=== PATIENT | female | born 1985 | race Caucasian/White ===

== ENCOUNTER 2016-08-06 18:56 | Emergency (ER) | payer BC, OTHER ==
[~2016-08-06] VITALS: Ht 160 cm; Wt 97.1 kg
[~2016-08-06 18:56] MED LIST: AC500T PO; ALPR.5T PO; ALPR1T PO; ALPR1TAB7; AMT10T PO; BUTA1CAP39 PO; CLIN-62 PO; CLN150C1RX PO; CLON1TAB PO; CYCL10TA9 PO; DCS100C PO; DICL50TA3 PO; DOXY100T2 PO; EST.1TD TOP; ESTR0.5T PO; ESTR1PAT92 TD; FLUO10CA29 PO; FLUO20CA25 PO; FLUO40CA PO; FLUT9.9S NS; GABA-488 PO; HYDR-2889 PO; HYDR-3714 PO; HYDR-3816 PO; HYDR-757 PO; HYDR1TAB PO; HYDR1TAB8 PO; IBP600T1 PO; IBUP-792 PO; INDO50CA PO; MAGN-47 PO; MDR10T PO; MGX400T PO; NAPR-243 PO; NITR-65 PO; ORPH100T PO; OXYC-12 PO; PHEN200T27 PO; PRD20T PO; PRED10TA PO; SULF1TAB38 PO; TOPROL
--- OUTSIDE RECORDS SUMMARY | 2016-08-06 19:01 | XMS REPORT | Continuity of Care Document ---
Author Author [facility] Organization [facility] Address Unknown Phone Unavailable Care Team Providers Care [facility] [employer] Attendant Name Role Phone PCP Unavailable Source Comments Some departments are not documenting in the electronic medical record. If you do not see the information that you expected, contact Release of Information in the Health Information Management department at [phone] for further assistance in locating additional records.[facility] Active Allergies and Adverse Reactions Allergen Noted Date Severity Reactions Comments Amoxicillin 11/02/2014 Low UNKNOWN Other 11/02/2014 Low UNKNOWN Chloreseptic spray Reglan 11/02/2014 Low UNKNOWN Ultram 11/02/2014 Low UNKNOWN Current Medications Prescription Sig. Disp. Refills Start End Date Status Date indomethacin (INDOCIN) 25 Take 25 mg by mouth three Active mg capsule times daily. estradiol (ESTRACE) 1 mg Take 1.5 mg by mouth Active tablet daily. FLUOXETINE HCL (PROZAC Take 40 mg by mouth. Active PO) ALPRAZolam (XANAX) 1 mg Take 1 mg by mouth three Active tablet times daily as needed. Active Problems Not on file Social History Tobacco Use Types Packs/Day Years Used Date Never Assessed Plan of Care Health Maintenance Due Date Last Done Comments Physical (Comprehensive) 1992 Exam Pertussis Vaccine 1996 Tetanus Vaccine 2002 Cervical Cancer Screening 2006 Influenza Vaccine 03/19/2016 Results from Last 3 Months Not on file
[2016-08-06] MEDS ORDERED: KETOROLAC 30 MG/ML VIAL IVP STA (19:37)
--- NOTE | 2016-08-06 19:42 | ED Abdominal Pain ---
General Chief Complaint: Abdominal/GI Problems Stated Complaint: ABD PAIN Nursing Triage Note: PT TO ED 7 W/ S.O. FOR C/O RUQ PAIN. REPORTS WAS SEEN AT [place] ET TOLD SHE WAS CONSTIPATED. Sepsis Screen: No Definite Risk History of Present Illness Time Seen By Provider: 19:30 Initial Comments Evaluation for right upper quadrant pain. Symptoms started approximately 3 weeks ago with constipation. Been evaluated in [place] by her primary care provider and emergency department. Timing/Duration: Other (3 weeks) Location: RUQ Radiation: No Radiation Modifying Factors: Improves With Defecating, Improves With Other (laxatives) Allergies and Home Medications Allergies Coded Allergies: amoxicillin (Unverified Allergy, Mild, RASH, 10/16/10) metoclopramide (Unverified Adverse Reaction, Intermediate, SHAKES, 10/16/10 ) benzocaine (Unverified Adverse Reaction, Mild, 10/16/10) menthol (Unverified Adverse Reaction, Mild, 10/16/10) tramadol (Verified Adverse Reaction, Mild, RASH, 08/02/11) Home Medications Alprazolam 1 Mg Tablet #30 (Reported) Butalb/Acetaminophen/Caffeine 1 Each Capsule #14 1 EACH PO Q4H PRN PRN HEADACHE Prescribed by: MONTRELL REGALADO on 06/25/15818 Ciprofloxacin HCl 500 Mg Tablet #6 500 MG PO Q12H Prescribed by: ANDRES RODRIGUEZ on 08/06/162127 Estradiol 1 Each Patch.tdsw 1 EACH TD Twice weekly (Reported) Fluoxetine HCl 10 Mg Capsule 10 MG PO (Reported) Hydrocodone/Acetaminophen 1 Each Tablet #10 1 EACH PO Q6H Prescribed by: MONTRELL REGALADO on 03/22/161938 Hydrocodone/Acetaminophen 1 Each Tablet #12 1 EACH PO Q6H PRN PRN PAIN Prescribed by: ANDRES RODRIGUEZ on 08/06/162133 Hyoscyamine Sulfate 0.125 Mg Tab.subl #12 0.125 MG SL Q4H Prescribed by: ANDRES RODRIGUEZ on 08/06/162133 Prednisone 20 Mg Tab #10 40 MG PO DAILY Prescribed by: MONTRELL REGALADO on 03/22/161938 Review of Systems Constitutional: no symptoms reported see HPI EENTM: No Symptoms Reported See HPI Respiratory: No Symptoms Reported See HPI Cardiovascular: No Symptoms Reported See HPI Gastrointestinal: See HPI Abdomen Distended Abdominal Pain (right upper quadrant) ConstipatedDenies Diarrhea, Denies Difficulty Swallowing, Nausea Poor AppetiteDenies Vomiting, Other (denies changes in color of stool.) Genitourinary: No Symptoms Reported See HPIDenies Flank Pain Musculoskeletal: no symptoms reported see HPI Skin: no symptoms reported see HPI Psychiatric/Neurological: No Symptoms Reported See HPI Endocrine: No Symptoms Reported See HPI Hematologic/Lymphatic: No Symptoms Reported See HPI All Other Systems Reviewed Negative Unless Noted: Yes Past Gkzetme-Kqbopn-Etljxy Hx Patient Social History Alcohol Use: Denies Use Recreational Drug Use: No Smoking Status: Current Everyday Smoker Type Used: Cigarettes Recent Foreign Travel: No Contact w/Someone Who Travel: No Recent Infectious Disease Expo: No Recent Hopitalizations: No Physical Abuse Screen: No Sexual Abuse: No Immunizations Up To Date Tetanus Booster (TDap): Unknown Seasonal Allergies Seasonal Allergies: No Surgeries HX Surgeries: Yes (HERNIA) Surgeries: Adenoidectomy, Section, Hysterectomy, Oophorectomy, Tonsillectomy Respiratory Hx Respiratory Disorders: No Cardiovascular Hx Cardiac Disorders: Yes (EPISODE OF BRADYCARDIA AFTER OF A CHILD) Cardiac Disorders: Hypertension Neurological Hx Neurological Disorders: Yes Neurological Disorders: Headaches /Migraines Reproductive System Hx Reproductive Disorders: No 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 Genitourinary Hx Genitourinary Disorders: No Gastrointestinal Hx Gastrointestinal Disorders: Yes Gastrointestinal Disorders: Gastroesophageal Reflux Musculoskeletal Hx Musculoskeletal Disorders: Yes Musculoskeletal Disorders: Fibromyalgia, Chronic Back Pain Endocrine Hx Endocrine Disorders: No HEENT HX ENT Disorders: No Cancer Hx Cancer: No Psychosocial Hx Psychiatric Problems: Yes Behavioral Health Disorders: Anxiety Integumentary HX Skin/Integumentary Disorder: No Blood Transfusions Hx Blood Disorders: No Reviewed Nursing Assessment Reviewed/Agree w Nursing PMH: Yes Family Medical History Significant Family History: No Pertinent Family Hx, Cancer Physical Exam Vital Signs VS - Last 72 Hours, by Label 08/06/16 08/06/16 19:08 22:35 Temp 99.7 Pulse 102 70 Resp 20 20 B/P 140/92 Pulse Ox 99 99 O2 Delivery Room Air Room Air Capillary Refill : Less Than 3 Seconds General Appearance: WD/WN no apparent distress HEENT: PERRL/EOMI normal ENT inspection TMs normal pharynx normal Neck: non-tender full range of motion supple normal inspection Respiratory: chest non-tender lungs clear no respiratory distress Cardiovascular: normal peripheral pulses regular rate, rhythm Gastrointestinal: normal bowel sounds soft no organomegalyNo rebound, tenderness (RUQ) other (+ Nur) Extremities: normal range of motion non-tender normal inspection no calf tenderness normal capillary refill Back: normal inspection no CVA tenderness no vertebral tenderness Neurologic/Psychiatric: alert normal mood/affect oriented x 3 Skin: normal color warm/dry Lymphatic: no adenopathy Progress/Results/Core Measures Results/Orders Lab Results Laboratory Tests Test 08/06/16 19:40 08/06/16 20:10 Range/Units Alanine Aminotransferase (ALT/SGPT) 48 0-55 U/L Albumin 4.3 3.2-4.5 G/DL Alkaline Phosphatase 93 40-136 U/L Amylase Level 42 25-125 U/L Anion Gap 12 5-14 MMOL/L Aspartate Amino Transf (AST/SGOT) 61 H 5-34 U/L BUN/Creatinine Ratio 15 Basophils # (Auto) 0.0 0.0-0.1 10^3/uL Basophils (%) (Auto) 1 0-10 % Blood Urea Nitrogen 12 7-18 MG/DL Calcium Level 9.3 8.5-10.1 MG/DL Carbon Dioxide Level 19 L 21-32 MMOL/L Chloride Level 107 98-107 MMOL/L Creatinine 0.78 0.60-1.30 MG/DL Eosinophils # (Auto) 0.2 0.0-0.3 10^3/uL Eosinophils (%) (Auto) 3 0-10 % Estimat Glomerular Filtration Rate > 60 Glucose Level 89 70-105 MG/DL Hematocrit 41 35-52 % Hemoglobin 14.0 11.5-16.0 G/DL Lipase 18 8-78 U/L Lymphocytes # (Auto) 2.2 1.0-4.0 X 10^3 Lymphocytes (%) (Auto) 28 12-44 % Mean Corpuscular Hemoglobin 30 25-34 PG Mean Corpuscular Hemoglobin Concent 34 32-36 G/DL Mean Corpuscular Volume 86 80-99 FL Mean Platelet Volume 10.6 H 7.4-10.4 FL Monocytes # (Auto) 0.4 0.0-1.0 X 10^3 Monocytes (%) (Auto) 5 0-12 % Neutrophils # (Auto) 5.1 1.8-7.8 X 10^3 Neutrophils (%) (Auto) 64 42-75 % Platelet Count 231 130-400 10^3/uL Potassium Level 3.8 3.6-5.0 MMOL/L Red Blood Count 4.74 4.35-5.85 10^6/uL Red Cell Distribution Width 12.6 10.0-14.5 % Sodium Level 138 135-145 MMOL/L Total Bilirubin 0.5 0.1-1.0 MG/DL Total Protein 7.5 6.4-8.2 G/DL White Blood Count 7.9 4.3-11.0 10^3/uL Urine Bacteria FEW H /HPF Urine Bilirubin NEGATIVE NEGATIVE Urine Casts NONE /LPF Urine Clarity CLEAR Urine Color YELLOW Urine Crystals NONE /LPF Urine Culture Indicated YES Urine Glucose (UA) NEGATIVE NEGATIVE Urine Ketones NEGATIVE NEGATIVE Urine Leukocyte Esterase 3+ H NEGATIVE Urine Mucus NEGATIVE /LPF Urine Nitrite NEGATIVE NEGATIVE Urine Protein NEGATIVE NEGATIVE Urine RBC 2-5 H /HPF Urine RBC (Auto) 3+ H NEGATIVE Urine Specific [place] 1.030 H 1.016-1.022 Urine Squamous Epithelial Cells 5-10 /HPF Urine Urobilinogen 4 H NORMAL MG/DL Urine WBC 10-25 H /HPF Urine pH 8 5-9 My Orders Orders-ANDRES RODRIGUEZ Amylase (08/06/16 19:37) Cbc With Automated Diff (08/06/16 19:37) Comprehensive Metabolic Panel (08/06/16 19:37) Lipase (08/06/16 19:37) Ketorolac Injection (Toradol Injection) (08/06/16 19:37) Saline Lock/Iv-Start (08/06/16 19:37) Us Gallbladder 729[address] (08/06/16 19:37) Hydrocodone/Apap 7.5/325 Tab (Lortab 7. (08/06/16 21:25) Ceftriaxone Injection (Rocephin Injectio (08/06/16 21:30) Hyoscyamine Sl Tablet (Levsin Sl Tablet) (08/06/16 21:45) Medications Given in ED Current Medications Medications Dose Ordered Sig/Delmis Route Start Time Stop Time Status Last Admin Dose Admin Ceftriaxone Sodium/Sodium Chloride 50 ml @ 100 mls/hr ONCE ONCE IV 08/06/16 21:30 08/06/16 21:59 DC 08/06/16 21:32 100 MLS/HR Hyoscyamine Sulfate 0.125 mg ONCE ONCE PO 08/06/16 21:45 08/06/16 21:46 DC 08/06/16 21:44 0.125 MG Vital Signs/I&O Vital Sign - Last 12Hours 08/06/16 08/06/16 19:08 22:35 Temp 99.7 Pulse 102 70 Resp 20 20 B/P 140/92 Pulse Ox 99 99 O2 Delivery Room Air Room Air Blood Pressure Mean: 108 Progress Note : Time: 19:30 Progress Note Initial evaluation completed, we'll obtain ultrasound of the gallbladder. Toradol 30 mg IV for pain. Patient denies needs for medication for nausea nausea. 2124 patient reports continued pain 7 out of 10 right upper quadrant, ultrasound essentially normal. Hydrocodone/APAP 7.5/325 mg. by mouth. UA shows UTI, culture ordered. Discussed patient findings with Dr. Reed, considering UA, concerns over pyelonephritis. No CVAT. Continues to have + Nur sign. 2129 Rocephin 1 gram IV. 2144 Levsin 0.125 mg SL 2199 patient reports slight improvement in symptoms, is comfortable to return home. Will follow-up with family doctor tomorrow. Understands importance to follow up for UTI, if pain in back presents or fever, she will seek care immediately. Diagnostic Imaging Diagonstic Imaging: Ultrasound Plain Films/CT/US/NM/MRI: other Comments US Gallbladder shows some wall thickening with sludge, no stones, CBD patent. Reviewed: Reviewed/Discussed Departure Impression Impression: Primary Impression: Urinary tract infection Qualified Code: N39.0 - Urinary tract infection, site not specified Additional Impression: Cholecystitis Disposition: 01 HOME, SELF-CARE Condition: Stable Departure-Patient Inst. Decision time for Depature: 22:15 Referrals: NO,LOCAL PHYSICIAN (PCP/Family) Primary Care Physician Patient Instructions: Constipation, Adult (DC), Gallstones (DC), Urinary Tract Infection, Adult (DC) Add. Discharge Instructions: All discharge instructions reviewed with patient and/or family. Voiced understanding. Follow up with family doctor early next week. Increase fluid intake. Drink Cranberry juice, one glass daily. See Dr. Genao ([phone]) or Dr. Brandt ([phone]) for gallbladder. Start Probiotic, over the counter. Return to Emergency Department for fevers, increased or change in symptoms. Scripts Hydrocodone/Acetaminophen (Hydrocodon -Acetaminophen 5-325)1 Each Tablet1 Each PO Q6H PRN PAIN #12 TAB Ref 0 Prov:ANDRES RODRIGUEZ 08/06/16 Hyoscyamine Sulfate (Levsin-Sl)0.125 Mg Tab.subl0.125 Mg SL Q4H Spasms #12 TAB Ref 0 Prov:ANDRES RODRIGUEZ 08/06/16 Ciprofloxacin HCl (Cipro)500 Mg [id number] Mg PO Q12H #6 TAB Prov:ANDRES RODRIGUEZ 08/06/16 ANDRES RODRIGUEZ Aug 06, 2016 19:42
[2016-08-06 19:53] LABS: BASOPHILS % (AUTO) 1 % (0-10); EOSINOPHILS # (AUTO) 0.2 10^3/uL (0.0-0.3); EOSINOPHILS % (AUTO) 3 % (0-10); LYMPHOCYTES # (AUTO) 2.2 X 10^3 (1.0-4.0); LYMPHOCYTES % (AUTO) 28 % (12-44); MEAN CORPUSCULAR HEMOGLOBIN 30 PG (25-34); MEAN CORPUSCULAR HGB CONC 34 G/DL (32-36); MEAN CORPUSCULAR VOLUME 86 FL (80-99); MEAN PLATELET VOLUME 10.6 FL (7.4-10.4); MONOCYTES # (AUTO) 0.4 X 10^3 (0.0-1.0); MONOCYTES % (AUTO) 5 % (0-12); NEUTROPHILS # (AUTO) 5.1 X 10^3 (1.8-7.8); NEUTROPHILS % (AUTO) 64 % (42-75); PLATELET COUNT 231 10^3/uL (130-400); RED BLOOD COUNT 4.74 10^6/uL (4.35-5.85); RED CELL DISTRIBUTION WIDTH 12.6 % (10.0-14.5); WHITE BLOOD COUNT 7.9 10^3/uL (4.3-11.0)
[2016-08-06 20:11] LABS: ALANINE AMINOTRANSFERASE 48 U/L (0-55); ALBUMIN 4.3 G/DL (3.2-4.5); AMYLASE 42 U/L (25-125); ANION GAP 12 MMOL/L (5-14); ASPARTATE AMINO TRANSFERASE 61 U/L (5-34); BILIRUBIN,TOTAL 0.5 MG/DL (0.1-1.0); BLOOD UREA NITROGEN 12 MG/DL (7-18); BUN/CREATININE RATIO 15; CALCIUM 9.3 MG/DL (8.5-10.1); CARBON DIOXIDE 19 MMOL/L (21-32); CHLORIDE 107 MMOL/L (98-107); CREATININE SERUM 0.78 MG/DL (0.60-1.30); GFR ESTIMATED > 60; GLUCOSE 89 MG/DL (70-105); LIPASE 18 U/L (8-78); POTASSIUM 3.8 MMOL/L (3.6-5.0); SODIUM 138 MMOL/L (135-145); TOTAL PROTEIN 7.5 G/DL (6.4-8.2)
[2016-08-06 20:19] LABS: BILIRUBIN,URINE NEGATIVE (NEGATIVE); KETONES,URINE NEGATIVE (NEGATIVE); LEUKOCYTE ESTERASE ,URINE 3+ (NEGATIVE); NITRITE,URINE NEGATIVE (NEGATIVE); PH,URINE 8 (5-9); PROTEIN,URINE NEGATIVE (NEGATIVE); UROBILINOGEN,URINE 4 MG/DL (NORMAL)
--- NOTE | 2016-08-06 21:20 | Diagnostic Imaging Report ---
PROCEDURE: US Gallbladder. TECHNIQUE: Multiple real-time grayscale images were obtained over the right upper quadrant in various projections. INDICATION: Right upper quadrant pain. FINDINGS: The liver appears normal. Gallbladder is not dilated. Gallbladder wall not thickened. Bile ducts appear normal with common duct measuring 5 mm. The portal and hepatic vein are patent with normal flow. The right kidney is normal. Midline structures are obscured due to considerable bowel gas. No ascites. IMPRESSION: Normal right upper quadrant ultrasound. Dictated by: Dictated on workstation # [id number]
[2016-08-06] MEDS ORDERED: HYDROcodone/APAP 7.5 MG/325 MG (LORTAB, LORCET PLUS) TABLET PO STA (21:25)
[2016-08-06] MEDS ORDERED: CIPR-225 PO (21:28)
[2016-08-06] MEDS ORDERED: cefTRIAXone INJECTION 1,000 MG in NORMAL SALINE (BAXTER MINI) 50 ML IV ONE (21:30)
[2016-08-06] MEDS ORDERED: HYDR-3812 PO (21:34)
[2016-08-06] MEDS ORDERED: HYOS0.1283 SL (21:34)
[2016-08-06] MEDS ORDERED: HYOSCYAMINE 0.125 MG (LEVSIN) TAB PO ONE (21:45)
[2016-08-06 22:35] VITALS: BP 123/86
== END 2016-08-06 22:35 | disposition home or self-care (01) ==
LOC: EDUNIT# 18:56 → ER 18:57
DX: N39.0 Urinary tract infection, site not specified (principal); K81.9 Cholecystitis, unspecified; I10 Essential (primary) hypertension; F17.210 Nicotine dependence, cigarettes, uncomplicated; Z79.899 Other long term (current) drug therapy
CPT/HCPCS: 36415; 76705; 80053; 81000; 82150; 83690; 85025; 87088; 96365; 96375

== ENCOUNTER 2022-07-27 19:45 | Observation (INO) | payer BC, OTHER ==
[~2022-07-27] VITALS: Ht 160 cm; Wt 98.5 kg
[~2022-07-27 19:45] MED LIST changes: +ACHD5005 PO; +CIPR-225 PO; +HYDR-34 PO; -HYDR-3816 PO; +HYOS0.1283 SL
[2022-07-27] MEDS ORDERED: fentaNYL INJ 100 MCG/2 ML AMP IVP ONE (20:00)
[2022-07-27] MEDS ORDERED: ONDANSETRON 4 MG/2 ML (SDV) Z0FRAN IVP ONE (20:00)
[2022-07-27 20:21] LABS: BILIRUBIN,URINE NEGATIVE (NEGATIVE); CLARITY,URINE CLEAR; COLOR,URINE YELLOW; GLUCOSE, URINE (UA) NEGATIVE (NEGATIVE); KETONES,URINE NEGATIVE (NEGATIVE); LEUKOCYTE ESTERASE ,URINE 1+ (NEGATIVE); NITRITE,URINE NEGATIVE (NEGATIVE); PH,URINE 8.5 (5-9); PROTEIN,URINE NEGATIVE (NEGATIVE)
[2022-07-27 20:37] LABS: RBC,URINE 0-2 /HPF
[2022-07-27 20:38] LABS: BACTERIA,URINE MODERATE /HPF; SQUAMOUS EPITHELIAL CELL,UR 25-50 /HPF
[2022-07-27] MEDS ORDERED: morphine INJ 10 MG/ML 1ML (SYR OR VIAL) IVP STA ×2 (20:50→22:35)
--- NOTE | 2022-07-27 21:00 | Diagnostic Imaging Report ---
PROCEDURE: CT urinary tract, rule out kidney stone. TECHNIQUE: Multiple contiguous axial images were obtained through the abdomen and pelvis without the use of intravenous contrast. Auto Exposure Controls were utilized during the CT exam to meet ALARA standards for radiation dose reduction. DATE: July 27, 2022 COMPARISON: CT chest, abdomen, and pelvis April 08, 2015. INDICATION: 37-year-old female, abdominal and pelvic pain. FINDINGS: There are limitations for evaluation of the abdominal organs, neoplastic processes, abscess, and limited evaluation of the vasculature relating to the lack of intravenous contrast. There is minimal dependent atelectasis in the right lower lobe. The heart is not enlarged. There is no pericardial effusion. The liver is unremarkable in size and contour. The gallbladder is not well seen and may be absent. There is no biliary ductal dilation. Noncontrast evaluation of the pancreatic parenchyma is unremarkable. The spleen is normal in size. The adrenal glands are unremarkable. Noncontrast assessment of the renal parenchyma is grossly unremarkable. There is no hydronephrosis. There is no identified renal or ureteral stone. The urinary bladder is unremarkable. The intestinal tract is not distended. There is no evidence of acute appendicitis. There is no identified free intraperitoneal air. There is no identified drainable fluid collection. There is no free fluid in the abdomen or pelvis. There is no identified abnormally enlarged lymph node in the abdomen or pelvis which meets CT size criteria for adenopathy. There is a benign L4 vertebral body hemangioma. There is no identified acute bony abnormality. IMPRESSION: CT ABDOMEN AND PELVIS. 1. No identified acute abnormality in the abdomen or pelvis. Dictated by: Dictated on workstation # [id number]
--- NOTE | 2022-07-27 22:36 | ED Abdominal Pain ---
General Chief Complaint: - Reproductive Stated Complaint: VAGINAL BLEEDING,ABD PAIN Nursing Triage Note: PT ARRIVED BY [facility] WITH COMPLAINTS LOWER ABD PAIN AND VAGINAL BLEEDING THAT STARTED WEDNESDAY NIGHT. PT HAD A HYSTERECTOMY 10 YEARS AGO. Source of Information: Patient, Old Records (Records and report from outside facility at [facility] in [place]) Exam Limitations: No Limitations History of Present Illness Date Seen by Provider: Jul 27, 2022 Time Seen by Provider: 19:49 Initial Comments This 37-year-old woman presents to the emergency room via EMS as a transfer from [place] for reasons of lower abdominal pain. [place] did not have ultrasound or CT capacity this evening to appropriately assess her complaints. Transfer was excepted from Dr. Mikey Ivory. Patient reports escalating lower abdominal pain for the past 4 days. She noted this pain started after having intercourse with her and developing vaginal bleeding. She was assessed by her prop maker earlier today. Vaginal swabs were collected. Patient reports there were no significant abnormalities noted on the exam. She had a bladder sling placed about 6 months ago and wonders if she is having complications with the sling. She is able to produce urine and does not feel like she is retaining. Cath urinalysis performed at the [place] ER was unremarkable. Lab work-up was also relatively unremarkable. Patient has had hysterectomy with BSO. Her primary care provider is Adore Britton in [place], and her prop maker is Nevaeh Curran in [place]. Patient lives in [place]. Patient reports no vomiting, diarrhea, or fever. She is in significant pain during assessment and reports Toradol given in [place] was not very helpful. Allergies and Home Medications Allergies Coded Allergies: amoxicillin (Unverified Allergy, Mild, RASH, 10/16/10) metoclopramide (Unverified Adverse Reaction, Intermediate, SHAKES, 10/16/10 ) benzocaine (Unverified Adverse Reaction, Mild, 10/16/10) menthol (Unverified Adverse Reaction, Mild, 10/16/10) tramadol (Verified Adverse Reaction, Mild, RASH, 08/02/11) Patient Home Medication List Home Medication List Reviewed: Yes Alprazolam (Alprazolam) 1 Mg Tablet, (Reported) Entered as Reported by: BRANDON CLINE on 06/25/15 0653 Butalb/Acetaminophen/Caffeine (Fioricet 50-300-40 mg Capsule) 1 Each Capsule, 1 EACH PO Q4H PRN for HEADACHE Prescribed by: MONTRELL REGALADO on 06/25/15818 Ciprofloxacin HCl (Cipro) 500 Mg Tablet, 500 MG PO Q12H Prescribed by: ANDRES RODRIGUEZ on 08/06/162127 Estradiol (Estradiol Patch Twice Weekly 0.025mg/hr) 1 Each Patch.tdsw, 1 EACH TD Twice weekly, (Reported) Entered as Reported by: BRANDON CLINE on 06/25/15652 Fluoxetine HCl (Prozac) 10 Mg Capsule, 10 MG PO, (Reported) Entered as Reported by: BRANDON CLINE on 06/25/15652 Hydrocodone Bit/Acetaminophen (Lortab 7.5 Mg Tablet) 1 Each Tablet, 1 EACH PO Q6H Prescribed by: MONTRELL REGALADO on 03/22/161938 Hydrocodone Bit/Acetaminophen (Lortab 5 Mg Tablet) 1 Each Tablet, 1 EACH PO Q6H PRN for PAIN Prescribed by: ANDRES RODRIGUEZ on 08/06/162133 Hyoscyamine Sulfate (Levsin-Sl) 0.125 Mg Tab.subl, 0.125 MG SL Q4H Prescribed by: ANDRES RODRIGUEZ on 08/06/162133 Prednisone (Prednisone) 20 Mg Tab, 40 MG PO DAILY Prescribed by: MONTRELL REGALADO on 03/22/161938 Review of Systems Review of Systems Constitutional: no symptoms reported EENTM: No Symptoms Reported Respiratory: No Symptoms Reported Cardiovascular: No Symptoms Reported Gastrointestinal: See HPI Genitourinary: See HPI Musculoskeletal: no symptoms reported Skin: no symptoms reported Psychiatric/Neurological: No Symptoms Reported Endocrine: No Symptoms Reported Hematologic/Lymphatic: No Symptoms Reported Past Vyqrnoy-Djeddk-Qqkumv Hx Patient Social History Tobacco Use?: No Substance use?: No Alcohol Use?: No Immunizations Up To Date Tetanus Booster (TDap): Unknown Seasonal Allergies Seasonal Allergies: No Past Medical History Surgeries: Yes Adenoidectomy, Bladder Surgery, Section, Hysterectomy (With BSO), Oophorectomy, Tonsillectomy Cardiac: Yes Hypertension Neurological: Yes Headaches /Migraines Reproductive Disorders: Yes [employer] History: Hysterectomy Genitourinary: Yes Kidney Stones Gastrointestinal: Yes Gastroesophageal Reflux Musculoskeletal: Yes Fibromyalgia, Chronic Back Pain HEENT: No Cancer: No Psychosocial: Yes Anxiety Family Medical History No Pertinent Family Hx, Cancer Physical Exam Vital Signs Vital Signs - First Documented 07/27/22 19:50 Pulse 96 B/P (MAP) 120/69 (86) Pulse Ox 99 O2 Delivery Room Air Capillary Refill : Height/Weight/BMI Height: 5'3" Weight: 214lbs. oz. [id number]; 38.00 BMI Method:Stated General Appearance: WD/WN, moderate distress (In pain) HEENT: normal ENT inspection Neck: normal inspection Respiratory: lungs clear, normal breath sounds, no respiratory distress Cardiovascular: regular rate, rhythm, no edema, no murmur Gastrointestinal: normal bowel sounds, soft, tenderness (Across the lower abdomen) Extremities: normal inspection, no pedal edema Neurologic/Psychiatric: no motor/sensory deficits, alert, normal mood/affect, oriented x 3 Skin: normal color, warm/dry Progress/Results/Core Measures Results/Orders Lab Results Laboratory Tests Test 07/27/22 20:05 07/27/22 23:13 Range/Units Urine Color YELLOW Urine Clarity CLEAR Urine pH 8.5 5-9 Urine Specific Maple 1.020 1.016-1.022 Urine Protein NEGATIVE NEGATIVE Urine Glucose (UA) NEGATIVE NEGATIVE Urine Ketones NEGATIVE NEGATIVE Urine Nitrite NEGATIVE NEGATIVE Urine Bilirubin NEGATIVE NEGATIVE Urine Urobilinogen 1.0 < = 1.0 MG/DL Urine Leukocyte Esterase 1+ H NEGATIVE Urine RBC (Auto) TRACE-I H NEGATIVE Urine RBC 0-2 /HPF Urine WBC 10-25 H /HPF Urine Squamous Epithelial Cells 25-50 H /HPF Urine Crystals NONE /LPF Urine Bacteria MODERATE H /HPF Urine Casts NONE /LPF Urine Mucus MODERATE H /LPF Urine Culture Indicated YES Erythrocyte Sedimentation Rate 12 0-20 MM/HR C-Reactive Protein High Sensitivity 0.17 0.00-0.50 MG/DL My Orders Orders - JERICHO OLIVER MD Ua Culture If Indicated (07/27/22 19:57) Fentanyl Inj (Sublimaze Injection) (07/27/22 20:00) Ondansetron Injection (Zofran Injectio (07/27/22 20:00) Ct Abd/Pelvis Wo(Kidney Stone) (07/27/22 20:18) Urine Culture (07/27/22 20:05) Morphine Injection (Morphine Injection (07/27/22 20:50) Morphine Injection (Morphine Injection (07/27/22 22:35) Hyoscyamine Sl Tablet (Levsin Sl Tablet) (07/27/22 22:45) Ketorolac Injection (Toradol Injection) (07/27/22 22:45) Lactated Ringers (Lr 1000 Ml Iv Solution (07/27/22 22:45) Hs C Reactive Protein (07/27/22 22:46) Erythrocyte Sedimentation Rate (07/27/22 22:46) Morphine Injection (Morphine Injection (07/28/22 00:53) Medications Given in ED Current Medications Medications Dose Ordered Sig/Delmis Route Start Time Stop Time Status Last Admin Dose Admin Fentanyl Citrate 75 mcg ONCE ONCE IVP 07/27/22 20:00 07/27/22 20:01 DC 07/27/22 20:13 75 MCG Hyoscyamine Sulfate 0.25 mg ONCE ONCE SL 07/27/22 22:45 07/27/22 22:46 DC 07/27/22 23:14 0.25 MG Ketorolac Tromethamine 30 mg ONCE ONCE IVP 07/27/22 22:45 07/27/22 22:46 DC 07/27/22 23:14 30 MG Lactated Ringer's 1,000 ml @ 0 mls/hr Q0M ONCE IV 07/27/22 22:45 07/27/22 22:47 DC 07/27/22 23:14 1,000 MLS/HR Ondansetron HCl 4 mg ONCE ONCE IVP 07/27/22 20:00 07/27/22 20:01 DC 07/27/22 20:13 4 MG Vital Signs/I&O 07/27/22 19:50 Pulse 96 B/P (MAP) 120/69 (86) Pulse Ox 99 O2 Delivery Room Air Blood Pressure Mean: 86 Progress Progress Note #1: Time: 22:43 Progress Note Patient has had only brief relief from fentanyl and morphine doses. We will repeat a morphine dose now. CT scan revealed no abnormalities. CT was viewed by me and the radiologist report was reviewed. Neither I nor the radiologist have appreciated any acute abnormalities to explain her pain. She does have a large stool burden in the ascending and transverse colon but the extent of her pain would be unusual for constipation. I discussed the situation with Dr. Condon, general surgeon on-call. He did not believe there would be any signif icant benefit to repeating the CT scan with contrast. We will try additional therapies including Levsin and Toradol to try to control her pain. If this is ineffective, we may admit for observation for symptom control and surgical consultation in the morning. I will also add a CRP and ESR to her evaluation. Progress Note #2: Progress Note Symptoms were not satisfactorily relieved with opioid pain medications. She was further treated with Toradol and Levsin. She may have had slightly better pain relief with these treatments added, but she was still in notable pain. Admission was offered for symptom control and surgical consult. I discussed the case with Dr. Condon, general surgeon, who requested admission be taken by the hospitalist team with a surgical consult. Admission was excepted by Dr. Torres. Diagnostic Imaging Diagonstic Imaging: CT Plain Films/CT/US/NM/MRI: abdomen, pelvis Comments CT scan was reviewed by me and no acute abnormalities were appreciated by my interpretation. Radiologist's report was also reviewed. See report below: NAME: VERA MARIN [facility] REC#: [id number] PT STATUS: REG ER : 1985 PHYSICIAN: JERICHO OLIVER MD ADMIT DATE: 07/27/22/ER Signed Date of Exam:07/27/22 CT ABD/PELVIS WO(KIDNEY STONE) PROCEDURE: CT urinary tract, rule out kidney stone. TECHNIQUE: Multiple contiguous axial images were obtained through the abdomen and pelvis without the use of intravenous contrast. Auto Exposure Controls were utilized during the CT exam to meet ALARA standards for radiation dose reduction. DATE: July 27, 2022 COMPARISON: CT chest, abdomen, and pelvis April 08, 2015. INDICATION: 37-year-old female, abdominal and pelvic pain. FINDINGS: There are limitations for evaluation of the abdominal organs, neoplastic processes, abscess, and limited evaluation of the vasculature relating to the lack of intravenous contrast. There is minimal dependent atelectasis in the right lower lobe. The heart is not enlarged. There is no pericardial effusion. The liver is unremarkable in size and contour. The gallbladder is not well seen and may be absent. There is no biliary ductal dilation. Noncontrast evaluation of the pancreatic parenchyma is unremarkable. The spleen is normal in size. The adrenal glands are unremarkable. Noncontrast assessment of the renal parenchyma is grossly unremarkable. There is no hydronephrosis. There is no identified renal or ureteral stone. The urinary bladder is unremarkable. The intestinal tract is not distended. There is no evidence of acute appendicitis. There is no identified free intraperitoneal air. There is no identified drainable fluid collection. There is no free fluid in the abdomen or pelvis. There is no identified abnormally enlarged lymph node in the abdomen or pelvis which meets CT size criteria for adenopathy. There is a benign L4 vertebral body hemangioma. There is no identified acute bony abnormality. IMPRESSION: CT ABDOMEN AND PELVIS. 1. No identified acute abnormality in the abdomen or pelvis. Departure Communication (Admissions) Time/Spoke to Admitting Phy: 01:05 Dr. Torres Time/Spoke to Consulting Phy: 22:40 Dr. Condon Impression Primary Impression: Intractable lower abdominal pain Additional Impression: Vaginal bleeding Disposition: ADMITTED INPATIENT Condition: Stable Admissions Decision to Admit Reason: Admit from ER (General) Decision to Admit/Date: Jul 27, 2022 Time/Decision to Admit Time: 22:40 Departure-Patient Inst. Referrals: NO,LOCAL PHYSICIAN (PCP/Family) Primary Care Physician JERICHO OLIVER MD Jul 27, 2022 22:36
[2022-07-27] MEDS ORDERED: KETOROLAC 30 MG/ML VIAL IVP ONE (22:45)
[2022-07-27] MEDS ORDERED: HYOSCYAMINE 0.125 MG (LEVSIN) TAB SL ONE (22:45)
[2022-07-27] MEDS ORDERED: LACTATED RINGERS 1,000 ML IV ONE (22:45)
[2022-07-28] VITALS (7 sets, daily range): BP systolic 116–142; BP diastolic 56–90
[2022-07-28] MEDS ORDERED: morphine INJ 10 MG/ML 1ML (SYR OR VIAL) IVP STA (00:53)
[2022-07-28] MEDS: LACTATED RINGERS 1,000 ML IV SCH ×3 (03:15→22:27)
[2022-07-28] MEDS: morphine INJ 4 MG/ML 1 ML (VIAL/SYRINGE) IV PRN ×4 (03:16→10:19)
[2022-07-28] MEDS: KETOROLAC 30 MG/ML VIAL IV PRN ×2 (04:50→22:27)
[2022-07-28 06:59] LABS: BASOPHILS % (AUTO) 1 % (0-10); EOSINOPHILS # (AUTO) 0.1 10^3/uL (0.0-0.3); EOSINOPHILS % (AUTO) 3 % (0-10); HEMATOCRIT 37 % (35-52); HEMOGLOBIN 12.5 g/dL (11.5-16.0); LYMPHOCYTES # (AUTO) 1.1 10^3/uL (1.0-4.0); LYMPHOCYTES % (AUTO) 29 % (12-44); MEAN CORPUSCULAR HEMOGLOBIN 30 pg (25-34); MEAN CORPUSCULAR HGB CONC 33 g/dL (32-36); MEAN CORPUSCULAR VOLUME 90 fL (80-99); MEAN PLATELET VOLUME 10.4 fL (9.0-12.2); MONOCYTES # (AUTO) 0.2 10^3/uL (0.0-1.0); MONOCYTES % (AUTO) 6 % (0-12); NEUTROPHILS # (AUTO) 2.2 10^3/uL (1.8-7.8); NEUTROPHILS % (AUTO) 61 % (42-75); PLATELET COUNT 212 10^3/uL (130-400); WHITE BLOOD COUNT 3.7 10^3/uL (4.3-11.0)
[2022-07-28] MEDS ORDERED: CATHETER FLUSH 10 ML SYR IVP PRN (07:30)
--- NOTE | 2022-07-28 09:03 | Consultation - Surgery ---
HENRY AMARO 07/28/22 0903: History of Present Illness History of Present Illness Patient Consulted On(nohemy/time) 07/27/22 Date Seen by Provider: Jul 28, 2022 Time Seen by Provider: 07:30 History of Present Illness Luba Silveira is a 37 yo female who was seen in the ED on 07/27 for lower abdominal pain. The patient reports she first developed vaginal bleeding following sexual intercourse with her on 07/24 around 2230, and around 0000 on 07/25, she developed lower abdominal pain. She states her abdominal pain has been accompanied by diaphoresis, subjective fever and chills, nausea, and difficulty sleeping, all secondary to her pain. The patient visited her OB on 07/27, Nevaeh Curran in [place], with these symptoms; patient states a pelvic exam was performed, and she was told was largely unremarkable, with no blood in her vaginal vault. The patient states her OB suspects her bleeding may have been from her urethra/bladder, though the patient to me reports with confidence that it was from her vagina. She then presented to the [facility] ED with these symptoms and was transferred to [facility] for imaging. The patient states, since arrival to , her pain has only improved with morphine, and only for 1.5 hours per dose. She had equivocal UA in the ED and was admitted for further workup. The patient endorses a history of hysterectomy and BSO, performed as separate surgeries, both in 2011. She also notes she has a bladder sling in place. The patient remarks her mother had a history of gastroparesis and ileus, which required placement of a colostomy and a feeding tube when she was middle-aged. The patient notes she has not had a bowel movement since 07/24, prior to the onset of her pain. The patient describes her pain as sharp and shooting, similar in character to her previous episodes of pelvic pain disorder, though with greater intensity and duration. She remarks she had difficulty urinating this morning. The patient denies any diarrhea, nausea, vomiting, dysuria, chest pain, SOB, headache, dysuria, leg pain, or leg swelling. Per ED note, the patient had a cath urinalysis obtained in [place] which was unremarkable. Allergies and Home Medications Allergies Coded Allergies: amoxicillin (Unverified Allergy, Mild, RASH, 10/16/10) metoclopramide (Unverified Adverse Reaction, Intermediate, SHAKES, 10/16/10) benzocaine (Unverified Adverse Reaction, Mild, 10/16/10) menthol (Unverified Adverse Reaction, Mild, 10/16/10) tramadol (Verified Adverse Reaction, Mild, RASH, 08/02/11) Patient Home Medication List Home Medication List Reviewed: Yes Alprazolam (Alprazolam) 1 Mg Tablet, (Reported) Entered as Reported by: BRANDON CLINE on 06/25/15652 Butalb/Acetaminophen/Caffeine (Fioricet 50-300-40 mg Capsule) 1 Each Capsule, 1 EACH PO Q4H PRN for HEADACHE Prescribed by: MONTRELL REGALADO on 06/25/15818 Ciprofloxacin HCl (Cipro) 500 Mg Tablet, 500 MG PO Q12H Prescribed by: ANDRES RODRIGUEZ on 08/06/162127 Estradiol (Estradiol Patch Twice Weekly 0.025mg/hr) 1 Each Patch.tdsw, 1 EACH TD Twice weekly, (Reported) Entered as Reported by: BRANDON CLINE on 06/25/15652 Fluoxetine HCl (Prozac) 10 Mg Capsule, 10 MG PO, (Reported) Entered as Reported by: BRANDON CLINE on 06/25/15652 Hydrocodone Bit/Acetaminophen (Lortab 7.5 Mg Tablet) 1 Each Tablet, 1 EACH PO Q6H Prescribed by: MONTRELL REGALADO on 03/22/161938 Hydrocodone Bit/Acetaminophen (Lortab 5 Mg Tablet) 1 Each Tablet, 1 EACH PO Q6H PRN for PAIN Prescribed by: ANDRES RODRIGUEZ on 08/06/162133 Hyoscyamine Sulfate (Levsin-Sl) 0.125 Mg Tab.subl, 0.125 MG SL Q4H Prescribed by: ANDRES RODRIGUEZ on 08/06/162133 Prednisone (Prednisone) 20 Mg Tab, 40 MG PO DAILY Prescribed by: MONTRELL REGALADO on 03/22/161938 Past Ynvfegg-Bxnggr-Blerax Hx Patient Social History Smoking Status: Former Smoker (39 pack years) Cigarettes Per Day: 15 Type Used: Cigarettes Recent Hopitalizations: No Alcohol Use?: No Immunizations Up To Date Tetanus Booster (TDap): Unknown Seasonal Allergies Seasonal Allergies: No Surgeries History of Surgeries: Yes Surgeries: Adenoidectomy, Bladder Surgery, Section, Gallbladder, Hysterectomy (With BSO), Oophorectomy, Tonsillectomy Respiratory History of Respiratory Disorde: No Cardiovascular History of Cardiac Disorders: Yes Cardiac Disorders: Hypertension Neurological History of Neurological Disord: Yes Neurological Disorders: Headaches /Migraines Reproductive System Hx Reproductive Disorders: Yes 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 Genitourinary History of Genitourinary Disor: Yes Genitourinary Disorders: Kidney Stones Gastrointestinal History of Gastrointestinal Di: Yes Gastrointestinal Disorders: Gastroesophageal Reflux Musculoskeletal History of Musculoskeletal Dis: Yes Musculoskeletal Disorders: Fibromyalgia, Chronic Back Pain HEENT History of HEENT Disorders: No Cancer History of Cancer: No Psychosocial History of Psychiatric Problem: Yes Behavioral Health Disorders: Anxiety, Depression Family Medical History Significant Family History: Heart Disease, Cancer, GI Disease (ileus, gastroparesis), Hypertension, Other Conditions/Hx (Multiple sclerosis) Review of Systems-General Constitutional: chills, fever (subjective) EENTM: No eye pain, No throat pain Respiratory: No cough, No short of breath Cardiovascular: No chest pain Gastrointestinal: abdominal pain (suprapubic), constipation; No diarrhea Genitourinary: No dysuria; hesitancy Musculoskeletal: back pain (chronic) Physical Exam-General Problems Physical Exam Vital Signs Vital Signs - First Documented 07/27/22 07/28/22 19:50 02:50 Temp 36.4 Pulse 96 Resp 18 B/P (MAP) 120/69 (86) Pulse Ox 99 O2 Delivery Room Air Capillary Refill : General Appearance: mild distress, obese Eyes: Bilateral Eye PERRL, Bilateral Eye EOMI HEENT: PERRL/EOMI, pharynx normal Neck: non-tender, supple; No carotid bruit Respiratory: lungs clear, normal breath sounds, no respiratory distress, no accessory muscle use Cardiovascular: regular rate, rhythm, no murmur Peripheral Pulses: 2+ Dorsalis Pedis (R), 2+ Left Dors-Pedis (L), 2+ Radial Pulses (R), 2+ Radial Pulses (L) Gastrointestinal: soft, abnormal bowel sounds (decreased), tenderness (suprapubic and LLQ) Extremities: non-tender, no pedal edema, no calf tenderness Neurologic/Psychiatric: alert, oriented x 3 Skin: normal color, warm/dry Data Review Labs Laboratory Tests 07/27/22 20:05: Urine Color YELLOW, Urine Clarity CLEAR, Urine pH 8.5, Urine Specific [place] 1.020, Urine Protein NEGATIVE, Urine Glucose (UA) NEGATIVE, Urine Ketones NEGATIVE, Urine Nitrite NEGATIVE, Urine Bilirubin NEGATIVE, Urine Urobilinogen 1.0, Urine Leukocyte Esterase 1+H, Urine RBC (Auto) TRACE-IH, Urine RBC 0-2, Urine WBC 10-25H, Urine Squamous Epithelial Cells 25-50H, Urine Crystals NONE, Urine Bacteria MODERATEH, Urine Casts NONE, Urine Mucus MODERATEH, Urine Culture Indicated YES 07/27/22 23:13: Erythrocyte Sedimentation Rate 12, C-Reactive Protein High Sensitivity 0.17 07/28/22 06:40: C-Reactive Protein High Sensitivity 0.19, White Blood Count 3.7L, Red Blood Count 4.18, Hemoglobin 12.5, Hematocrit 37, Mean Corpuscular Volume 90, Mean Corpuscular Hemoglobin 30, Mean Corpuscular Hemoglobin Concent 33, Red Cell Distribution Width 13.1, Platelet Count 212, Mean Platelet Volume 10.4, Immature Granulocyte % (Auto) 0, Neutrophils (%) (Auto) 61, Lymphocytes (%) (Auto) 29, Monocytes (%) (Auto) 6, Eosinophils (%) (Auto) 3, Basophils (%) (Auto) 1, Neutrophils # (Auto) 2.2, Lymphocytes # (Auto) 1.1, Monocytes # (Auto) 0.2, Eosinophils # (Auto) 0.1, Basophils # (Auto) 0.0, Immature Granulocyte # (Auto) 0.0 Radiology Date of Exam:07/27/22 CT ABD/PELVIS WO(KIDNEY STONE) IMPRESSION: CT ABDOMEN AND PELVIS. 1. No identified acute abnormality in the abdomen or pelvis. Assessment/Plan Assessment/Plan Assessment/Plan 1. Lower abdominal pain 2. Vaginal bleeding 3. Equivocal UA with 1+ Leukocyte Esterase and Moderate Bacteria 4. Constipation Given lower abdominal pain may be due to constipation or UTI, among other sources: consider initiating stool softener/laxative regimen for constipation treatment, consider initiating antibiotics for possible UTI. Consider consulting CHERRY PITTER for vaginal bleeding in post-hysterectomy patient. TAWANNA NORMAN DO 07/28/22 1410: History of Present Illness History of Present Illness Time Seen by Provider: 11:24 History of Present Illness Surgery asked to consult regarding pelvic pain. When I saw pt she was laying in bed, appeared comfortable but stated her pain was severe and only better with pain meds. The pain she is experiencing now is worse than her chronic pelvic pain and mostly on the left side. Allergies and Home Medications Allergies Coded Allergies: amoxicillin (Unverified Allergy, Mild, RASH, 10/16/10) metoclopramide (Unverified Adverse Reaction, Intermediate, SHAKES, 10/16/10) benzocaine (Unverified Adverse Reaction, Mild, 10/16/10) menthol (Unverified Adverse Reaction, Mild, 10/16/10) tramadol (Verified Adverse Reaction, Mild, RASH, 08/02/11) Patient Home Medication List Home Medication List Reviewed: Yes Alprazolam (Alprazolam) 1 Mg Tablet, (Reported) Entered as Reported by: BRANDON CLINE on 06/25/15652 Butalb/Acetaminophen/Caffeine (Fioricet 50-300-40 mg Capsule) 1 Each Capsule, 1 EACH PO Q4H PRN for HEADACHE Prescribed by: MONTRELL REGALADO on 06/25/15818 Ciprofloxacin HCl (Cipro) 500 Mg Tablet, 500 MG PO Q12H Prescribed by: ANDRES RODRIGUEZ on 08/06/162127 Estradiol (Estradiol Patch Twice Weekly 0.025mg/hr) 1 Each Patch.tdsw, 1 EACH TD Twice weekly, (Reported) Entered as Reported by: BRANDON CLINE on 06/25/15652 Fluoxetine HCl (Prozac) 10 Mg Capsule, 10 MG PO, (Reported) Entered as Reported by: BRANDON CLINE on 06/25/15652 Hydrocodone Bit/Acetaminophen (Lortab 7.5 Mg Tablet) 1 Each Tablet, 1 EACH PO Q6H Prescribed by: MONTRELL REGALADO on 03/22/161938 Hydrocodone Bit/Acetaminophen (Lortab 5 Mg Tablet) 1 Each Tablet, 1 EACH PO Q6H PRN for PAIN Prescribed by: ANDRES RODRIGUEZ on 08/06/162133 Hyoscyamine Sulfate (Levsin-Sl) 0.125 Mg Tab.subl, 0.125 MG SL Q4H Prescribed by: ANDRES RODRIGUEZ on 08/06/162133 Prednisone (Prednisone) 20 Mg Tab, 40 MG PO DAILY Prescribed by: MONTRELL REGALADO on 03/22/161938 Past Nvrqnkd-Lsipml-Laqemh Hx Patient Social History Smoking Status: Former Smoker (39 pack years) Surgeries History of Surgeries: Yes Surgeries: Adenoidectomy, Bladder Surgery, Section, Gallbladder, Hysterectomy (With BSO), Oophorectomy, Tonsillectomy Respiratory History of Respiratory Disorde: No Cardiovascular History of Cardiac Disorders: No Neurological History of Neurological Disord: Yes Neurological Disorders: Neuropathy Reproductive System : No 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 Genitourinary History of Genitourinary Disor: Yes Genitourinary Disorders: Bladder Infection Gastrointestinal History of Gastrointestinal Di: Yes (chronic pain) Gastrointestinal Disorders: Gall Bladder Disease Musculoskeletal History of Musculoskeletal Dis: Yes Musculoskeletal Disorders: Fibromyalgia Endocrine History of Endocrine Disorders: No HEENT History of HEENT Disorders: No Loss of Vision: Denies Hearing Impairment: Denies Cancer History of Cancer: No Psychosocial History of Psychiatric Problem: Yes Behavioral Health Disorders: Anxiety, Depression Family Medical History Significant Family History: Heart Disease, Cancer, GI Disease (ileus, gas troparesis), Hypertension, Other Conditions/Hx (Multiple sclerosis) Review of Systems-General Constitutional: chills, fever (subjective) EENTM: No eye pain, No throat pain Respiratory: No cough, No short of breath Cardiovascular: No chest pain, No Hx of Intervention, No palpitations Gastrointestinal: abdominal pain (suprapubic), constipation; No diarrhea Genitourinary: No dysuria; hesitancy Musculoskeletal: back pain (chronic), joint pain, joint swelling, muscle pain, muscle cramps, muscle twitching, neck pain Skin: No change in color, No change in hair/nails Psychiatric/Neurological: Anxiety, Depressed Physical Exam-General Problems Physical Exam General Appearance: mild distress, obese Eyes: Bilateral Eye PERRL, Bilateral Eye EOMI HEENT: pharynx normal; No scleral icterus (R), No scleral icterus (L) Neck: non-tender, supple Respiratory: lungs clear, normal breath sounds, no respiratory distress, no accessory muscle use Cardiovascular: regular rate, rhythm, no murmur Gastrointestinal: soft, abnormal bowel sounds (decreased), tenderness (suprapubic and LLQ), hernia (small umbilical) Rectal: deferred Extremities: non-tender, no pedal edema, no calf tenderness Neurologic/Psychiatric: alert, oriented x 3 Skin: normal color, warm/dry Lymphatic: no adenopathy (neck, axilla or groin) Data Review Radiology Date of Exam:07/27/22 CT ABD/PELVIS WO(KIDNEY STONE) PROCEDURE: CT urinary tract, rule out kidney stone. TECHNIQUE: Multiple contiguous axial images were obtained through the abdomen and pelvis without the use of intravenous contrast. Auto Exposure Controls were utilized during the CT exam to meet ALARA standards for radiation dose reduction. DATE: July 27, 2022 COMPARISON: CT chest, abdomen, and pelvis April 08, 2015. INDICATION: 37-year-old female, abdominal and pelvic pain. FINDINGS: There are limitations for evaluation of the abdominal organs, neoplastic processes, abscess, and limited evaluation of the vasculature relating to the lack of intravenous contrast. There is minimal dependent atelectasis in the right lower lobe. The heart is not enlarged. There is no pericardial effusion. The liver is unremarkable in size and contour. The gallbladder is not well seen and may be absent. There is no biliary ductal dilation. Noncontrast evaluation of the pancreatic parenchyma is unremarkable. The spleen is normal in size. The adrenal glands are unremarkable. Noncontrast assessment of the renal parenchyma is grossly unremarkable. There is no hydronephrosis. There is no identified renal or ureteral stone. The urinary bladder is unremarkable. The intestinal tract is not distended. There is no evidence of acute appendicitis. There is no identified free intraperitoneal air. There is no identified drainable fluid collection. There is no free fluid in the abdomen or pelvis. There is no identified abnormally enlarged lymph node in the abdomen or pelvis which meets CT size criteria for adenopathy. There is a benign L4 vertebral body hemangioma. There is no identified acute bony abnormality. IMPRESSION: CT ABDOMEN AND PELVIS. 1. No identified acute abnormality in the abdomen or pelvis. Dictated by: Dictated on workstation # [id number] Dict: 07/27/222045 Trans: 07/27/222136 [facility] [id number] Interpreted by: ALICE SULLIVAN MD Electronically signed by: ALICE SULLIVAN MD 07/27/222136 Assessment/Plan Assessment/Plan Assessment/Plan 1. Lower abdominal pain 2. Vaginal bleeding 3. Constipation I reviewed the CT myself and spoke with Dr. Dupont about this pt's condition. Her vitals are basically normal and there are no indications of problems requiring surgery at this time. No inflammation anywhere in abdomen on CT and appendix appears normal. There is some extra fecal material in the right colon; but, she is complaining about pain in the left side. Pain could be due to constipation, but I doubt it. I think this is an increase of her chronic pain, but not sure from what. Would consider initiating stool softener/laxative regimen for constipation treatment and will talk to CHERRY PITTER regarding her bladder sling. Supervisory-Addendum Brief Verification & Attestation Participated in pt care: history, MDM, physical Personally performed: exam, history, MDM, supervision of care Care discussed with: Medical Student Procedures: n/a Verification and Attestation of Medical Student E/M Service A medical student performed and documented this service. I then reviewed and verified all information documented by the medical student and made modifica tions to such information, when appropriate. I personally performed a physical exam, medical decision making and then discussed any differences between the notes and made revisions as necessary to create one note. Tawanna Norman , 07/28/22 , 14:11 HENRY AMARO Jul 28, 2022 09:03 TAWANNA NORMAN DO Jul 28, 2022 14:10
--- NOTE | 2022-07-28 11:22 | History & Physical-Hospitalist ---
History of Present Illness HPI/Chief Complaint Patient is a 37-year-old female with past medical history of chronic back pain, fibromyalgia who presented to the emergency department due to abdominal pain. She originally presented to the ER in [place] with severe abdominal pain and was transferred from their ER to ours as they did not have CT or ultrasound available. She does have a history of hysterectomy with BSO. She underwent CT of her abdomen which had no acute findings but moderate stool burden. Despite this she has had severe abdominal pain. They attempted to control her pain with IV fentanyl, IV morphine, IV Toradol, Levsin. She is only had moderate relief with morphine. Because they were unable to obtain pain control she was admitted for surgical consultation. This morning she reports that her pain is about the same and is in her lower abdomen. Morphine gives some relief but does not last long. Her last BM was 07/24. Source: patient Date Seen 07/28/22 Time Seen by a Provider: 10:15 Attending Physician Adore Britton Pa-C PCP Admitting Physician: Elijah Torres MD Attending Physician: Elijah Torres MD Referring Physician Date of Admission Jul 28, 2022 at 1:06 am Home Medications & Allergies Home Medications Reviewed patient Home Medication Reconciliation performed by pharmacy medication reconciliations nuclear worker technician and/or nursing. Patients Allergies have been reviewed. Allergies Allergies Coded Allergies amoxicillin (Unverified Allergy, Mild, RASH, 10/16/10) metoclopramide (Unverified Adverse Reaction, Intermediate, SHAKES, 10/16/10) benzocaine (Unverified Adverse Reaction, Mild, 10/16/10) menthol (Unverified Adverse Reaction, Mild, 10/16/10) tramadol (Verified Adverse Reaction, Mild, RASH, 08/02/11) Past Xjslhxo-Bglrrq-Drrzpe Hx Patient Social History Tobacco Use?: No Smoking Status: Former Smoker (39 pack years) Smokeless Tobacco Frequency: Never a User Use of E-Cig and/or Vaping dev: No Substance use?: No Additional substance use comme: history of methamphetamine use Alcohol Use?: No Pt feels they are or have been: No Immunizations Up To Date Tetanus Booster (TDap): Unknown Seasonal Allergies Seasonal Allergies: No Current Status status: No status: No Advance Directives: No Communicates: Verbally Primary Language: Bahamian Preferred Spoken Language: Bahamian Is interpretation needed?: No Sensory deficits: Vision impairment Implanted or Applied Medical D: None Past Medical History Surgeries: Adenoidectomy, Bladder Surgery, Section, Gallbladder, Hysterectomy (With BSO), Oophorectomy, Tonsillectomy Hypertension Headaches /Migraines 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 oz. 97.242401js; 38.47 BMI Method:Stated General Appearance: No Apparent Distress, WD/WN, Obese HEENT: PERRL/EOMI, Moist Mucous Membranes Respiratory: Lungs Clear, No Respiratory Distress Cardiovascular: Regular Rate, Rhythm Gastrointestinal: Normal Bowel Sounds, Soft; No Distended, No Guarding; Tenderness (lower abd, L>R) Extremity: No Calf Tenderness, No Pedal Edema Neurologic/Psychiatric: Alert, Oriented x3 Results Results/Procedures Labs Laboratory Tests 07/28/22 06:40 Patient resulted labs reviewed. Imaging: Reviewed Imaging Report Imaging [facility] [place] NAME: VERA MARIN [facility] REC#: [id number] PT STATUS: REG ER : 1985 PHYSICIAN: JERICHO OLIVER MD ADMIT DATE: 07/27/22/ER Signed Date of Exam:07/27/22 CT ABD/PELVIS WO(KIDNEY STONE) PROCEDURE: CT urinary tract, rule out kidney stone. TECHNIQUE: Multiple contiguous axial images were obtained through the abdomen and pelvis without the use of intravenous contrast. Auto Exposure Controls were utilized during the CT exam to meet ALARA standards for radiation dose reduction. DATE: July 27, 2022 COMPARISON: CT chest, abdomen, and pelvis April 08, 2015. INDICATION: 37-year-old female, abdominal and pelvic pain. FINDINGS: There are limitations for evaluation of the abdominal organs, neoplastic processes, abscess, and limited evaluation of the vasculature relating to the lack of intravenous contrast. There is minimal dependent atelectasis in the right lower lobe. The heart is not enlarged. There is no pericardial effusion. The liver is unremarkable in size and contour. The gallbladder is not well seen and may be absent. There is no biliary ductal dilation. Noncontrast evaluation of the pancreatic parenchyma is unremarkable. The spleen is normal in size. The adrenal glands are unremarkable. Noncontrast assessment of the renal parenchyma is grossly unremarkable. There is no hydronephrosis. There is no identified renal or ureteral stone. The urinary bladder is unremarkable. The intestinal tract is not distended. There is no evidence of acute appendicitis. There is no identified free intraperitoneal air. There is no identified drainable fluid collection. There is no free fluid in the abdomen or pelvis. There is no identified abnormally enlarged lymph node in the abdomen or pelvis which meets CT size criteria for adenopathy. There is a benign L4 vertebral body hemangioma. There is no identified acute bony abnormality. IMPRESSION: CT ABDOMEN AND PELVIS. 1. No identified acute abnormality in the abdomen or pelvis. Dictated by: Dictated on workstation # [id number] Dict: 07/27/222045 Trans: 07/27/222136 [facility] [id number] Interpreted by: ALICE SULLIVAN MD Electronically signed by: ALICE SULLIVAN MD 07/27/222136 Assessment/Plan Admission Diagnosis Intractable abdominal pain Admission Status: Observation Assessment and Plan Intractable abdominal pain Uncertain of etiology at this time no leukocytosis or fever CT without evidence of appendicitis Tender but not acute appearing abd on exam NPO Consider aggressive bowel regimen to help with constipation if no indication for surgical intervention Vaginal bleeding Did not mention to me only to the ER (14yo son was on facetime throughout exam though) Saw mason tender yesterday- will likely need outpatient follow up Bacteruria Given abd pain will treat with abx though specimen looks contaminated Diagnosis/Problems Diagnosis/Problems (1) Intractable lower abdominal pain Status: Acute (2) Vaginal bleeding Status: Acute (3) Urinary tract infection Status: Acute LEXIE FOSTER MD Jul 28, 2022 11:22 am
[2022-07-28] MEDS: cefTRIAXone 1 GM PRE-MIX 50 ML IV SCH (12:27)
[2022-07-28] MEDS: morphine INJ 10 MG/ML 1ML (SYR OR VIAL) IV PRN ×3 (12:28→20:12)
[2022-07-28] MEDS ORDERED: HYDROcodone/APAP 5 MG/325 MG (LORTAB) TAB PO PRN (12:30)
[2022-07-28] MEDS ORDERED: FLUO40CA PO (14:56)
[2022-07-28] MEDS ORDERED: ESTR1TAB24 PO (14:56)
[2022-07-28] MEDS ORDERED: ASPI1TAB23 PO (14:56)
[2022-07-28] MEDS ORDERED: TIZA-186 PO (14:56)
[2022-07-28] MEDS ORDERED: PHEN37.58 PO (14:56)
[2022-07-28] MEDS ORDERED: UBRO100T PO (14:56)
[2022-07-28] MEDS ORDERED: OXYC1TAB11 PO (14:56)
[2022-07-28] MEDS ORDERED: TOPI25TA10 PO (14:56)
[2022-07-28] MEDS ORDERED: PANT40TA52 PO (14:56)
[2022-07-28] MEDS ORDERED: PREG75CA75 PO ×2 (14:56→14:58)
[2022-07-28] MEDS ORDERED: TRZ50T PO (14:56)
[2022-07-28] MEDS: oxyCODONE/APAP 7.5-325 MG (PERCOCET 7.5) TABLET PO PRN ×2 (17:18→21:23)
[2022-07-29] MEDS: morphine INJ 10 MG/ML 1ML (SYR OR VIAL) IV PRN ×3 (00:46→06:35)
[2022-07-29] MEDS: oxyCODONE/APAP 7.5-325 MG (PERCOCET 7.5) TABLET PO PRN ×2 (00:46→04:50)
[2022-07-29 03:33] VITALS: BP 128/65
[2022-07-29 05:57] LABS: HEMATOCRIT 35 % (35-52); HEMOGLOBIN 11.8 g/dL (11.5-16.0); MEAN CORPUSCULAR HEMOGLOBIN 31 pg (25-34); MEAN CORPUSCULAR HGB CONC 34 g/dL (32-36); MEAN CORPUSCULAR VOLUME 90 fL (80-99); MEAN PLATELET VOLUME 10.1 fL (9.0-12.2); PLATELET COUNT 196 10^3/uL (130-400); WHITE BLOOD COUNT 3.1 10^3/uL (4.3-11.0)
[2022-07-29 06:26] LABS: CALCIUM 8.9 MG/DL (8.5-10.1); CREATININE SERUM 0.7 MG/DL (0.60-1.30); POTASSIUM 3.9 MMOL/L (3.6-5.0)
--- NOTE | 2022-07-29 07:24 | Progress Note - Surgery ---
HENRY AMARO 07/29/22 0724: Subjective Date Seen by a Provider: Jul 29, 2022 Time Seen by a Provider: 06:45 Subjective/Events-last exam The patient is seated in bed at time of evaluation. She reports her abdominal pain is unchanged from yesterday, still present in the suprapubic and LLQ regions and with only moderate improvement with morphine. She states she has diffuse pruritis which she is attributing to the morphine, and states her nurse is looking into having Dr. Oreilly switch her over to Dilaudid; patient states she has never taken morphine before. The patient further endorses a headache with nausea this morning, which consistent with her history of migraines. The patient denies any rash, shortness of breath, or vomiting, as well as any chest pain, dysuria, or chills. She remarks she still feels like she needs to "push" when she urinates. Review of Systems General: No Chills HEENT: Head Aches Pulmonary: No Dyspnea Cardiovascular: No: Chest Pain Gastrointestinal: Nausea, Abdominal Pain, Constipation; No: Vomiting Genitourinary: No Dysuria Objective Exam Vital Signs Date Time Temp Pulse Resp B/P (MAP) Pulse Ox O2 Delivery O2 Flow Rate FiO2 07/29/22 03:33 36.4 61 20 128/65 (86) 99 Room Air 07/28/22 23:47 36.5 73 20 116/56 (76) 96 Room Air 07/28/22 20:36 Room Air 07/28/22 19:57 36.2 64 20 128/85 (99) 98 Room Air 07/28/22 16:11 36.6 63 16 142/84 (103) 98 Room Air 07/28/22 11:10 36.3 71 20 132/90 (104) 98 Room Air 07/28/22 08:00 Room Air 07/28/22 07:53 36.4 61 20 127/60 (82) 100 Room Air I & O 07/29/22 07:00 Intake Total 3290 ml Output Total 1500 ml Balance 1790 ml Capillary Refill : General Appearance: Mild Distress, Obese HEENT: PERRL/EOMI Respiratory: Lungs Clear, Normal Breath Sounds, No Accessory Muscle Use, No Respiratory Distress Cardiovascular: Regular Rate, Rhythm, No Murmur, Normal Peripheral Pulses Peripheral Pulses: 2+ Dorsalis Pedis (R), 2+ Left Dors-Pedis (L), 2+ Radial Pulses (R), 2+ Radial Pulses (L) Gastrointestinal: normal bowel sounds, soft, tenderness (suprapubic and LLQ, mild LUQ), hernia (small umbilical) Extremity: No Calf Tenderness, No Pedal Edema Neurologic/Psychiatric: Alert, Oriented x3 Skin: Normal Color, Warm/Dry Results Lab Laboratory Tests 07/29/22 05:50: White Blood Count 3.1L, Red Blood Count 3.84, Hemoglobin 11.8, Hematocrit 35, Mean Corpuscular Volume 90, Mean Corpuscular Hemoglobin 31, Mean Corpuscular Hemoglobin Concent 34, Red Cell Distribution Width 13.3, Platelet Count 196, Mean Platelet Volume 10.1, Sodium Level 140, Potassium Level 3.9, Chloride Level 109H, Carbon Dioxide Level 24, Anion Gap 7, Blood Urea Nitrogen 7, Creatinine 0.70, Estimat Glomerular Filtration Rate 114, BUN/Creatinine Ratio 10, Glucose Level 78, Calcium Level 8.9 Microbiology 07/27/22 Urine Culture - Preliminary, Resulted NO GROWTH Assessment/Plan Assessment/Plan Assessment/Plan 1. Lower abdominal pain 2. Vaginal bleeding 3. Constipation 4. Headache 5. Pruritis Patient's CMP returned unremarkable. Her abdominal pain is unchanged from yesterday, continue with previous plan of rest and monitoring. Continue stool softener/laxative regimen for persistent constipation. Consider initiating triptan for headache consistent with the patient's previous migraines. Patient's pruritis may be an adverse effect of morphine, consider switching analgesia regimen. DINH CONDON DO 07/29/22 1441: Subjective Time Seen by a Provider: 13:04 Subjective/Events-last exam Pt seen and examined, states she feels same as yesterday and the only working is the Dilaudid. Review of Systems General: No Chills HEENT: Head Aches Pulmonary: No Dyspnea Cardiovascular: No: Chest Pain Gastrointestinal: Nausea, Abdominal Pain, Constipation; No: Vomiting Genitourinary: No Dysuria Objective Exam General Appearance: Mild Distress, Obese HEENT: PERRL/EOMI Respiratory: Lungs Clear, Normal Breath Sounds, No Accessory Muscle Use, No Respiratory Distress Cardiovascular: Regular Rate, Rhythm, No Murmur Gastrointestinal: normal bowel sounds, soft, tenderness (suprapubic and LLQ, mild LUQ), hernia (small umbilical) Extremity: No Calf Tenderness, No Pedal Edema Assessment/Plan Assessment/Plan Assessment/Plan 1. Lower abdominal pain 2. Vaginal bleeding 3. Constipation 4. Headache 5. Pruritis Patient's CMP returned unremarkable. Her abdominal pain is unchanged from yesterday, continue with previous plan of rest and monitoring. Continue stool softener/laxative regimen for persistent constipation. Consider initiating triptan for headache consistent with the patient's previous migraines. Patient's pruritis may be an adverse effect of morphine, consider switching analgesia regimen. Pt has no surgical indications at this time. Supervisory-Addendum Brief Verification & Attestation Participated in pt care: history, MDM, physical Personally performed: exam, history, MDM, supervision of care Care discussed with: Medical Student Procedures: n/a Verification and Attestation of Medical Student E/M Service A medical student performed and documented this service. I then reviewed and verified all information documented by the medical student and made modifications to such information, when appropriate. I personally performed a physical exam, medical decision making and then discussed any differences between the notes and made revisions as necessary to create one note. Dinh Condon , 07/29/22 , 14:39 HENRY AMARO Jul 29, 2022 07:24 DINH CONDON DO Jul 29, 2022 14:41
[2022-07-29 08:00] VITALS: BP 106/70
[2022-07-29] MEDS: BISACODYL 5 MG (DULCOLAX) TABLET PO PRN (08:10)
[2022-07-29] MEDS: KETOROLAC 30 MG/ML VIAL IV PRN ×2 (08:10→18:00)
[2022-07-29] MEDS: oxyCODONE/APAP 10/325MG (PERCOCET 10) TABLET PO PRN ×4 (08:10→22:57)
[2022-07-29] MEDS: LACTATED RINGERS 1,000 ML IV SCH ×3 (08:14→20:21)
[2022-07-29] MEDS: ONDANSETRON 4 MG/2 ML (SDV) Z0FRAN IV PRN ×3 (08:21→18:00)
[2022-07-29] MEDS: cefTRIAXone 1 GM PRE-MIX 50 ML IV SCH (10:43)
[2022-07-29] MEDS: HYDROmorphone 2 MG/ML VIAL (DILAUDID) IVP PRN ×2 (10:44→20:05)
[2022-07-29 12:03] VITALS: BP 134/87
[2022-07-29] MEDS ORDERED: BISACODYL 10 MG SUPP (DULCOLAX) PR NR (15:00)
[2022-07-29 15:15] VITALS: BP 138/87
--- NOTE | 2022-07-29 15:44 | Progress Note - Hospitalist ---
Subjective HPI/CC On Admission Date Seen by Provider: Jul 29, 2022 Patient is a 37-year-old female with past medical history of chronic back pain, fibromyalgia who presented to the emergency department due to abdominal pain. She originally presented to the ER in [place] with severe abdominal pain and was transferred from their ER to ours as they did not have CT or ultrasound available. She does have a history of hysterectomy with BSO. She underwent CT of her abdomen which had no acute findings but moderate stool burden. Despite this she has had severe abdominal pain. They attempted to control her pain with IV fentanyl, IV morphine, IV Toradol, Levsin. She is only had moderate relief with morphine. Because they were unable to obtain pain control she was admitted for surgical consultation. This morning she reports that her pain is about the same and is in her lower abdomen. Morphine gives some relief but does not last long. Her last BM was 07/24. Subjective/Events-last exam Pt reports still having pain. Requesting switch to Dilaudid. She believes pain is due to sling. Offered FRAME CLEANER consult. Objective Exam Vital Signs Vital Signs Date Time Temp Pulse Resp B/P (MAP) Pulse Ox O2 Delivery O2 Flow Rate FiO2 07/29/22 12:03 36.2 77 18 134/87 (103) 98 Room Air Capillary Refill : General Appearance: No Apparent Distress, Chronically ill Respiratory: Lungs Clear, No Respiratory Distress Cardiovascular: Regular Rate, Rhythm, No Murmur Gastrointestinal: Normal Bowel Sounds, Non Tender, Soft Neurologic/Psychiatric: Alert, Oriented x3 Results/Procedures Lab Laboratory Tests 07/29/22 05:50 Patient resulted labs reviewed. Imaging: Reviewed Imaging Report Assessment/Plan Assessment and Plan Assess & Plan/Chief Complaint Intractable abdominal pain Uncertain of etiology no leukocytosis or fever still CT without evidence of appendicitis Tender but not acute appearing abd on exam NPO Started bowel regimen FRAME CLEANER consulted Increased oral pain regimen Discussed with patient the need for primary options with oral medications and that if not cause is found and emergencies are ruled out by imaging and consul tants will need to DC home Vaginal bleeding Did not mention to me only to the ER (14yo son was on facetime throughout exam though) 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
[2022-07-29] MEDS ORDERED: NON-FORMULARY MEDICATION 1 EA EA (Ubrogepant (Ubrelvy) 100 MG) PO PRN (15:45)
[2022-07-29] MEDS ORDERED: PREGABALIN 75 MG (LYRICA) CAP PO PRN (15:45)
--- NOTE | 2022-07-29 17:15 | Consultation ---
History of Present Illness History of Present Illness Patient Consulted On(nohemy/time) 07/29/22 17:08 Date Seen by Provider: Jul 29, 2022 Time Seen by Provider: 17:00 Reason for Visit: Acute on Chronic pelvic pain History of Present Illness Patient sent from [place] via EMS for imaging due to pelvic pain that could not be evaluated with imaging there. She reports 3-4 weeks ago having bleeding after intercourse and this was followed by continuous pelvic pain which has not gotten any better since. She went to Cheese Supervisor provider in [place] Wednesday who sent her to the ER due to the degree of pain she was describing. She reports having a "bladder pin up" done about 6 months ago in [place]. Reports having hysterectomy with BSO, that was supracervical. Allergies and Home Medications Allergies Coded Allergies: amoxicillin (Unverified Allergy, Mild, RASH, 10/16/10) metoclopramide (Unverified Adverse Reaction, Intermediate, SHAKES, 10/16/10) benzocaine (Unverified Adverse Reaction, Mild, 10/16/10) menthol (Unverified Adverse Reaction, Mild, 10/16/10) tramadol (Verified Adverse Reaction, Mild, RASH, 08/02/11) Patient Home Medication List Home Medication List Reviewed: Yes Aspirin/Acetaminophen/Caffeine (Excedrin Migraine Caplet) 250 Mg-250 Mg-65 Mg Tablet, 2 EACH PO Q6-8HR PRN for Headache, (Reported) Entered as Reported by: MARK ATTE on 07/28/221455 Last Action: Held Estradiol (Estradiol Tablet) 1 Mg Tablet, 0.5 MG PO HS, (Reported) Entered as Reported by: MARK TATE on 07/28/221455 Last Action: Continued Fluoxetine HCl (Fluoxetine HCl) 40 Mg Capsule, 40 MG PO HS, (Reported) Entered as Reported by: MARK TATE on 07/28/221455 Last Action: Converted Oxycodone HCl/Acetaminophen (Oxycodone-Acetaminophen 5-325) 5 Mg-325 Mg Tablet, 1 EA PO Q8H PRN for PAIN-MODERATE (5-7), (Reported) Entered as Reported by: MARK TATE on 07/28/221455 Last Action: Held Pantoprazole Sodium (Pantoprazole Sodium) 40 Mg Tablet.dr, 40 MG PO HS, (Reported) Entered as Reported by: MARK TATE on 07/28/221455 Last Action: Continued Phentermine HCl (Phentermine HCl) 37.5 Mg Tablet, 37.5 MG PO DAILY, (Reported) Entered as Reported by: MARK TATE on 07/28/221455 Last Action: Held Pregabalin (Pregabalin) 75 Mg Capsule, 75 MG PO HS, (Reported) Entered as Reported by: MARK TATE on 07/28/221455 Last Action: Continued Pregabalin (Pregabalin) 75 Mg Capsule, 75 MG PO DAILY PRN for PAIN-BREAKTHROUGH, (Reported) Entered as Reported by: MARK TATE on 07/28/221457 Last Action: Continued Tizanidine HCl (Tizanidine HCl) 4 Mg Tablet, 8 MG PO HS, (Reported) Entered as Reported by: MARK TATE on 07/28/221455 Last Action: Continued Topiramate (Topiramate) 25 Mg Tablet, 25 MG PO 0800,1200, (Reported) Entered as Reported by: MARK TATE on 07/28/221455 Last Action: Continued Trazodone HCl (Trazodone HCl) 50 Mg Tablet, 50 MG PO HS, (Reported) Entered as Reported by: MARK TATE on 07/28/221455 Last Action: Continued Ubrogepant (Ubrelvy) 100 Mg Tablet, 100 MG PO UD PRN for MIGRAINE, (Reported) Entered as Reported by: MARK TATE on 07/28/221455 Last Action: Converted Discontinued Medications Alprazolam (Alprazolam) 1 Mg Tablet, (Reported) Discontinued Reason: No Longer Taking Entered as Reported by: BRANDON CLINE on 06/25/15652 Last Action: Discontinued Butalb/Acetaminophen/Caffeine (Fioricet 50-300-40 mg Capsule) 1 Each Capsule, 1 EACH PO Q4H PRN for HEADACHE Discontinued Reason: No Longer Taking Prescribed by: MONTRELL REGALADO on 06/25/15818 Last Action: Discontinued Ciprofloxacin HCl (Cipro) 500 Mg Tablet, 500 MG PO Q12H Discontinued Reason: No Longer Taking Prescribed by: ANDRES RODRIGUEZ on 08/06/162127 Last Action: Discontinued Estradiol (Estradiol Patch Twice Weekly 0.025mg/hr) 1 Each Patch.tdsw, 1 EACH TD Twice weekly, (Reported) Discontinued Reason: No Longer Taking Entered as Reported by: BRANDON CLINE on 06/25/15652 Last Action: Discontinued Fluoxetine HCl (Prozac) 10 Mg Capsule, 10 MG PO, (Reported) Discontinued Reason: No Longer Taking Entered as Reported by: BRANDON CLINE on 06/25/15652 Last Action: Discontinued Hydrocodone Bit/Acetaminophen (Lortab 7.5 Mg Tablet) 1 Each Tablet, 1 EACH PO Q6H Discontinued Reason: No Longer Taking Prescribed by: MONTRELL REGALADO on 03/22/161938 Last Action: Discontinued Hydrocodone Bit/Acetaminophen (Lortab 5 Mg Tablet) 1 Each Tablet, 1 EACH PO Q6H PRN for PAIN Discontinued Reason: No Longer Taking Prescribed by: ANDRES RODRIGUEZ on 08/06/162133 Last Action: Discontinued Hyoscyamine Sulfate (Levsin-Sl) 0.125 Mg Tab.subl, 0.125 MG SL Q4H Discontinued Reason: No Longer Taking Prescribed by: ANDRES RODRIGUEZ on 08/06/162133 Last Action: Discontinued Prednisone (Prednisone) 20 Mg Tab, 40 MG PO DAILY Discontinued Reason: No Longer Taking Prescribed by: MONTRELL REGALADO on 03/22/161938 Last Action: Discontinued Past Pdxnkkh-[id number]-Nxwepq Hx Patient Social History Smoking Status: Former Smoker (39 pack years) Smokeless Tobacco Frequency: Never a User Use of E-Cig and/or Vaping dev: No Substance use?: No Additional substance use comme: history of methamphetamine use Alcohol Use?: No Pt feels they are or have been: No Immunizations Up To Date Tetanus Booster (TDap): Unknown Influenza Vaccine Up-to-Date: No; Not Current COVID19 Vaccine Allergy Physician: Moderna Seasonal Allergies Seasonal Allergies: No Past Medical History Surgeries: Yes Adenoidectomy, Bladder Surgery, Section, Gallbladder, Hysterectomy (With BSO), Oophorectomy, Tonsillectomy Respiratory: No Cardiac: No Hypertension Neurological: Yes Neuropathy : No 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 Genitourinary: Yes Bladder Infection Gastrointestinal: Yes (chronic pain) Gall Bladder Disease Musculoskeletal: Yes Fibromyalgia Endocrine: No HEENT: No Loss of Vision: Denies Hearing Impairment: Denies Cancer: No Psychosocial: Yes Anxiety, Depression Family Medical History Heart Disease, Cancer, GI Disease (ileus, gastroparesis), Hypertension, Other Conditions/Hx (Multiple sclerosis) Review of Systems-General Constitutional: see HPI EENTM: see HPI Respiratory: no symptoms reported Cardiovascular: no symptoms reported Gastrointestinal: see HPI Genitourinary: see HPI : No All Other Systems Reviewed Negative Unless Noted: Yes Physical Exam-General Problems Physical Exam Vital Signs Vital Signs - First Documented 07/27/22 07/28/22 19:50 02:50 Temp 36.4 Pulse 96 Resp 18 B/P (MAP) 120/69 (86) Pulse Ox 99 O2 Delivery Room Air Capillary Refill : General Appearance: WD/WN, mild distress HEENT: PERRL/EOMI, normal ENT inspection Neck: non-tender, full range of motion Respiratory: no respiratory distress Gastrointestinal: soft (mild tenderness suprapubically) Genital/Rectal: other (Normal external genitailia, vaginal mucosa normal, no mesh errosion palpated. No bleeding noted on digital or visual exam) Back: normal inspection Extremities: normal capillary refill Neurologic/Psychiatric: alert, normal mood/affect, oriented x 3 Skin: normal color, warm/dry Assessment/Plan Assessment/Plan Admission Diagnosis/Plan Diagnosis: 37 yo female with intractable pelvic pain Postcoital vaginal bleeding of unknown etiology P: Discussed with Roseanna Cruz and the patient normal gynecologic evaluation We discussed how this may be of GI origin or urinary origin, and would consider a urology consultation as she may need cystoscopy to further evaluate the bladder as a possible source of her post coital bleeding and the pain she has been having. Patient demonstrated she understood my evaluation. Admission Status: Observation ANTHONY NEVAREZ DO Jul 29, 2022 17:15
--- NOTE | 2022-07-29 17:36 | Discharge Inst-Simple/Standard ---
Discharge Inst-Standard Patient Instructions/Follow Up Plan of Care/Instructions/FU: Please continue to take your medications as written. Please follow up with your primary care doctor to follow up this hospital stay. Activity as Tolerated: Yes Discharge Diet: No Restrictions Return to The Hospital For: Worsening pain, fever, no BM or passing gas for over 48 hours, chest pain, shortness of breath, weakness, if you feel you are getting worse. LEXIE FOSTER MD Jul 29, 2022 17:36
[2022-07-29 19:06] VITALS: BP 133/74
[2022-07-29] MEDS ORDERED: NON-FORMULARY MEDICATION 1 EA EA (Fluoxetine HCl 40 MG) PO SCH (21:00)
[2022-07-29] MEDS ORDERED: FLUoxetine HCL 20 MG (PROzac) CAP PO SCH (21:00)
[2022-07-29] MEDS ORDERED: ESTRADIOL 1 MG TAB (ESTRACE) PO SCH (21:00)
[2022-07-29] MEDS ORDERED: PREGABALIN 75 MG (LYRICA) CAP PO SCH (21:00)
[2022-07-29] MEDS ORDERED: PANTOPRAZOLE 40 MG (PROTONIX) TAB PO SCH (21:00)
[2022-07-29] MEDS ORDERED: traZODone 50 MG (DESYREL) TAB PO SCH (21:00)
[2022-07-29 23:00] VITALS: BP 100/57
[2022-07-30 04:45] VITALS: BP 120/69
[2022-07-30] MEDS: oxyCODONE/APAP 10/325MG (PERCOCET 10) TABLET PO PRN ×3 (05:07→15:46)
[2022-07-30] MEDS: HYDROmorphone 2 MG/ML VIAL (DILAUDID) IVP PRN ×3 (05:10→12:54)
[2022-07-30] MEDS: LACTATED RINGERS 1,000 ML IV SCH (05:14)
[2022-07-30 05:54] LABS: HEMATOCRIT 36 % (35-52); HEMOGLOBIN 12.1 g/dL (11.5-16.0); MEAN CORPUSCULAR HEMOGLOBIN 30 pg (25-34); MEAN CORPUSCULAR HGB CONC 33 g/dL (32-36); MEAN CORPUSCULAR VOLUME 91 fL (80-99); MEAN PLATELET VOLUME 10.2 fL (9.0-12.2); PLATELET COUNT 215 10^3/uL (130-400); WHITE BLOOD COUNT 3.6 10^3/uL (4.3-11.0)
[2022-07-30 06:03] LABS: POTASSIUM 4.1 MMOL/L (3.6-5.0)
[2022-07-30 06:04] LABS: CALCIUM 8.7 MG/DL (8.5-10.1)
[2022-07-30 06:09] LABS: CREATININE SERUM 0.72 MG/DL (0.60-1.30)
--- NOTE | 2022-07-30 07:26 | Progress Note - Surgery ---
HENRY AMARO 07/30/22 0726: Subjective Date Seen by a Provider: Jul 30, 2022 Time Seen by a Provider: 06:50 Subjective/Events-last exam The patient is in the right lateral recumbent position in bed at the time of evaluation. She states her abdominal pain has worsened since yesterday in intensity, and it has begun radiating to her lower umbilical region, as well as her bilateral upper thighs and buttocks, wrapping along the inguinal region and anterior thigh. It does not radiate fully posteriorly on the buttocks. She describes the leg/buttocks pain as the "same pain" as her lower abdomen. The patient endorses two "very small" episodes of diarrhea, once last night and once early this morning, but otherwise remains constipated. She remarks she has persistent nausea, difficulty urinating, diaphoresis, and chills. She denies any chest pain, shortness of breath, headache, or pruritis. Review of Systems General: Chills, Other (Sweats) HEENT: No Head Aches Pulmonary: No Dyspnea Cardiovascular: No: Chest Pain Gastrointestinal: Nausea, Abdominal Pain, Diarrhea, Constipation; No: Vomiting Genitourinary: No Dysuria; Retention Musculoskeletal: leg pain Objective Exam Vital Signs Date Time Temp Pulse Resp B/P (MAP) Pulse Ox O2 Delivery O2 Flow Rate FiO2 07/30/22 04:45 36.4 76 20 120/69 (86) 97 Room Air 07/29/22 23:00 36.0 55 18 100/57 (71) 93 Room Air 07/29/22 20:24 Room Air 07/29/22 19:06 36.4 60 133/74 (93) 99 Room Air 07/29/22 15:15 36.9 66 16 138/87 (104) 99 Room Air 07/29/22 12:03 36.2 77 18 134/87 (103) 98 Room Air 07/29/22 08:00 Room Air 07/29/22 08:00 36.2 64 18 106/70 (82) 96 Room Air I & O 07/30/22 07:00 Intake Total 3780 ml Output Total 1000 ml Balance 2780 ml Capillary Refill : General Appearance: Chronically ill, Mild Distress, Obese HEENT: PERRL/EOMI Respiratory: Lungs Clear, Normal Breath Sounds, No Accessory Muscle Use, No Respiratory Distress Cardiovascular: Regular Rate, Rhythm, No Murmur Peripheral Pulses: 2+ Dorsalis Pedis (R), 2+ Left Dors-Pedis (L), 2+ Radial Pulses (R), 2+ Radial Pulses (L) Gastrointestinal: normal bowel sounds, soft; No distended, No guarding; tenderness (suprapubic and lower umbilical regions) Extremity: No Calf Tenderness, No Pedal Edema, Other (tenderness to palpation of the upper anterior thighs and upper lateral buttocks, left greater than right.) Neurologic/Psychiatric: Alert, Oriented x3 Skin: Normal Color, Warm/Dry Results Lab Laboratory Tests 07/30/22 05:36: White Blood Count 3.6L, Red Blood Count 4.00, Hemoglobin 12.1, Hematocrit 36, Mean Corpuscular Volume 91, Mean Corpuscular Hemoglobin 30, Mean Corpuscular Hemoglobin Concent 33, Red Cell Distribution Width 13.2, Platelet Count 215, Mean Platelet Volume 10.2, Sodium Level 139, Potassium Level 4.1, Chloride Level 108H, Carbon Dioxide Level 22, Anion Gap 9, Blood Urea Nitrogen 5L, Creatinine 0.72, Estimat Glomerular Filtration Rate 110, BUN/Creatinine Ratio 7, Glucose Level 92, Calcium Level 8.7 Microbiology 07/27/22 Urine Culture - Final, Complete Gram Pos Mixed Bacterial Yanely Assessment/Plan Assessment/Plan Assessment/Plan 1. Lower abdominal pain 2. Vaginal bleeding 3. Constipation 4. Headache - resolved 07/30 5. Pruritis - resolved afternoon of 07/29 6. Bilateral inguinal region and lateral buttocks pain Her abdominal pain is worsened from yesterday, with increased intensity and radiation up to her umbilicus, as well as radiation along her bilateral inguinal regions, wrapping anterolaterally to her lateral buttocks. Continue with previous plan of rest and monitoring. Continue stool softener/laxative regimen for persistent constipation. Patient's headache and pruritis are both resolved this morning. TAWANNA CONDON DO 07/30/22 1413: Subjective Time Seen by a Provider: 11:12 Subjective/Events-last exam PT seen and examined, states she has pain radiating into legs now. Review of Systems General: Chills, Other (Sweats) HEENT: No Head Aches Pulmonary: No Dyspnea Cardiovascular: No: Chest Pain Gastrointestinal: Nausea, Abdominal Pain, Diarrhea, Constipation; No: Vomiting Genitourinary: No Dysuria; Retention Musculoskeletal: leg pain Objective Exam General Appearance: Chronically ill, Mild Distress, Obese HEENT: PERRL/EOMI Respiratory: Lungs Clear, Normal Breath Sounds, No Accessory Muscle Use, No Respiratory Distress Cardiovascular: Regular Rate, Rhythm, No Murmur Gastrointestinal: soft; No distended, No guarding; tenderness (suprapubic and lower umbilical regions) Extremity: No Calf Tenderness, Other (tenderness to palpation of the upper anterior thighs and upper lateral buttocks, left greater than right.) Neurologic/Psychiatric: Alert, Oriented x3 Assessment/Plan Assessment/Plan Assessment/Plan 1. Lower abdominal pain 2. Vaginal bleeding 3. Constipation 4. Headache - resolved 07/30 5. Pruritis - resolved afternoon of 07/29 6. Bilateral inguinal region and lateral buttocks pain Her abdominal pain is worsened from yesterday, with increased intensity and radiation up to her umbilicus, as well as radiation along her bilateral inguinal regions, wrapping anterolaterally to her lateral buttocks. Continue with previous plan of rest and monitoring. Continue stool softener/laxative regimen for persistent constipation. Patient's headache and pruritis are both resolved this morning. I discussed her care with Hospitalist, she is getting US and if nothing found she is pat home. Pt is asking about diagnostic laparoscopy; this is non- emergent and can be set up as outpt. Supervisory-Addendum Brief Verification & Attestation Participated in pt care: history, MDM, physical Personally performed: exam, history, MDM, supervision of care Care discussed with: Medical Student Procedures: n/a Verification and Attestation of Medical Student E/M Service A medical student performed and documented this service. I then reviewed and verified all information documented by the medical student and made modifications to such information, when appropriate. I personally performed a physical exam, medical decision making and then discussed any differences between the notes and made revisions as necessary to create one note. Tawanna Condon , 07/30/22 , 14:13 HENRY AMARO Jul 30, 2022 07:26 TAWANNA CONDON DO Jul 30, 2022 14:13
[2022-07-30 07:45] VITALS: BP 117/76
[2022-07-30] MEDS: BISACODYL 5 MG (DULCOLAX) TABLET PO PRN (07:57)
[2022-07-30] MEDS: toPIRamate 25 MG (TOPAMAX) TAB PO SCH ×2 (07:57→12:53)
[2022-07-30] MEDS: KETOROLAC 30 MG/ML VIAL IV PRN (07:57)
[2022-07-30] MEDS: cefTRIAXone 1 GM PRE-MIX 50 ML IV SCH (11:23)
[2022-07-30 11:24] VITALS: BP 122/84
--- NOTE | 2022-07-30 13:58 | Diagnostic Imaging Report ---
PROCEDURE: Pelvic comp/transvaginal sonogram. TECHNIQUE: Complete transabdominal and transvaginal pelvic ultrasound was performed. In addition, limited pelvic Doppler was performed. INDICATION: Abdominal pain and bleeding. Patient had hysterectomy 10 years ago. FINDINGS: The uterus and both ovaries are surgically absent. The patient reportedly still has her cervix. There is an area of central hyperechogenicity noted which could represent the endocervical canal. No discrete mass is identified. No free fluid or fluid collection is identified. IMPRESSION: Endocervical canal appears to be slightly prominent. The study is otherwise unremarkable. Dictated by: Dictated on workstation # [id number]
[2022-07-30 15:13] VITALS: BP 123/84
--- NOTE | 2022-07-30 15:30 | Diagnostic Imaging Report ---
INDICATION: Abdominal pain. PROCEDURE: Ultrasound abdomen complete. TECHNIQUE: Multiple real-time grayscale images were obtained of the abdomen in various projections. FINDINGS: Liver is normal in size at 15.8 cm. Portal vein is patent and shows normal direction of flow. Gallbladder is surgically absent. Extrahepatic bile duct is slightly prominent at 8 mm. Visualized pancreas is unremarkable. Spleen is normal in size at 9.1 cm. Aorta is nonaneurysmal. IVC is patent. Right kidney measures 10.5 cm in length, and left kidney measures 12.7 cm in length. No calculi or hydronephrosis is detected. There is no ascites. IMPRESSION: Status post cholecystectomy. Extrahepatic bile duct is slightly prominent, which could be owing to post-cholecystectomy state. No other significant abnormality is detected. Dictated by: Dictated on workstation # [id number]
[2022-07-30] MEDS ORDERED: OXYC1TAB11 PO (15:45)
--- NOTE | 2022-07-30 15:50 | Discharge Summary ---
Diagnosis/Chief Complaint Date of Admission Jul 28, 2022 at 01:06 Date of Discharge Discharge Date: Jul 29, 2022 Admission Diagnosis Intractable abdominal pain [facility] Discharge Diagnosis (1) Intractable lower abdominal pain Status: Acute (2) Vaginal bleeding Status: Acute (3) Urinary tract infection Status: Acute Discharge Summary Discharge Physical Exam Allergies: Coded Allergies: amoxicillin (Unverified Allergy, Mild, RASH, 10/16/10) metoclopramide (Unverified Adverse Reaction, Intermediate, SHAKES, 10/16/10) benzocaine (Unverified Adverse Reaction, Mild, 10/16/10) menthol (Unverified Adverse Reaction, Mild, 10/16/10) tramadol (Verified Adverse Reaction, Mild, RASH, 08/02/11) Vitals & I&Os Vital Signs Date Time Temp Pulse Resp B/P (MAP) Pulse Ox O2 Delivery O2 Flow Rate FiO2 07/30/22 15:13 36.2 62 18 123/84 (97) 95 Room Air Hospital Course Patient was admitted to the hospital secondary to intractable abdominal pain. She originally presented to [facility] but they were unable to do a CT scan or ultrasound and so was transferred to the emergency room here. She had a CT of her abdomen and pelvis was done which showed no acute abnormality. There was no evidence of acute appendicitis. They attempted pain control in the emergency department but despite multiple doses of IV medications they were unable to achieve adequate pain control and she was admitted to observation. Dr. Condon, surgery, was consulted for evaluation as well. He was treated with IV morphine and then switched to IV Dilaudid at her request. She was also started on oral oxycodone for pain control. Given persistent pain and her history of a sling and hysterectomy Dr. NEVAREZ, HEARING THERAPY TEACHER, who was consulted. Patient requested further work-up for pain given benign findings up until this point with labs, imaging, exams by multiple providers. A transvaginal and abdominal ultrasound were done which also showed no acute findings. I called and discussed this with her urologist Dr. Martinez and Leola who recommended referral to pelvic floor physical therapist and states she has had a similar episode after intercourse before. He states he is done a cystoscopy on her that was normal a few months ago. He agrees to see her in consultation and follow-up. I attempted to call her primary care provider, Adore Quijano physician commercial lines assistant. There was no answer. I placed referrals to Dr. Martinez, pelvic floor physical therapy at [facility] with Valentina Falcon, and DALE Nash. I discussed all of this with the patient. I reiterated multiple times that I believe her pain but that at this time I cannot find a reason for it but could also not find a reason to keep her in the hospital for further work-up. I recommended close follow-up with the providers listed above. Labs (last 24 hrs) Laboratory Tests 07/30/22 05:36: White Blood Count 3.6L, Red Blood Count 4.00, Hemoglobin 12.1, Hematocrit 36, Mean Corpuscular Volume 91, Mean Corpuscular Hemoglobin 30, Mean Corpuscular Hemoglobin Concent 33, Red Cell Distribution Width 13.2, Platelet Count 215, Mean Platelet Volume 10.2, Sodium Level 139, Potassium Level 4.1, Chloride Level 108H, Carbon Dioxide Level 22, Anion Gap 9, Blood Urea Nitrogen 5L, Creatinine 0.72, Estimat Glomerular Filtration Rate 110, BUN/Creatinine Ratio 7, Glucose Level 92, Calcium Level 8.7 Microbiology 07/27/22 Urine Culture - Final, Complete Gram Pos Mixed Bacterial Yanely Patient resulted labs reviewed. Imaging: Reviewed Imaging Report Discussion & Recommendations Discharge Planning: >30 minutes discharge planning Discharge Home Medications: Active Scripts Active Oxycodone-Acetaminophen 5-325 (Oxycodone HCl/Acetaminophen) 5 Mg-325 Mg Tablet 1 Ea PO Q4H PRN Reported Pregabalin 75 Mg Capsule 75 Mg PO DAILY PRN Excedrin Migraine Caplet (Aspirin/Acetaminophen/Caffeine) 250 Mg-250 Mg-65 Mg Tablet 2 Each PO Q6-8HR PRN Phentermine HCl 37.5 Mg Tablet 37.5 Mg PO DAILY Tizanidine HCl 4 Mg Tablet 8 Mg PO HS TAKES 2 (4MG) TABS Ubrelvy (Ubrogepant) 100 Mg Tablet 100 Mg PO UD PRN Pregabalin 75 Mg Capsule 75 Mg PO HS Trazodone HCl 50 Mg Tablet 50 Mg PO HS Fluoxetine HCl 40 Mg Capsule 40 Mg PO HS Pantoprazole Sodium 40 Mg Tablet.dr 40 Mg PO HS Estradiol Tablet (Estradiol) 1 Mg Tablet 0.5 Mg PO HS TAKES OF A 1MG TAB Topiramate 25 Mg Tablet 25 Mg PO 0800,1200 Instructions to patient/family Please see electronic discharge instructions given to patient. LEXIE FOSTER MD Jul 30, 2022 15:50
[2022-07-30 18:19] VITALS: BP 123/84
== END 2022-07-30 19:00 | disposition home or self-care (01) ==
LOC: EDUNIT# 19:45 → ER 19:49 → UNDOADMOB 07-28 01:06 → 4TH 07-28 01:06 → UNDODISOB 07-30 19:00
PROVIDERS: ADMIT Internal Medicine; ATTEND Internal Medicine
DX: R10.31 Right lower quadrant pain (principal); N39.0 Urinary tract infection, site not specified; N92.0 Excessive and frequent menstruation with regular cycle; K59.00 Constipation, unspecified
CPT/HCPCS: 36415; 74176; 76700; 76830; 76856; 80048; 81000; 85025; 85027; 85652; 86141; 87088